=== PATIENT | female | born 1940 | race Caucasian/White ===

== ENCOUNTER 2017-12-04 07:43 | Emergency (ER) | payer MEDICARE, OTHER, SELFPAY ==
[2017-12-04 08:05] VITALS: BP 129/65; PULSE 90; RESP 14; TEMP 36.7; O2SAT 95
--- NOTE | 2017-12-04 08:12 | W.ED.GENAD ---
Discharge Plan Disposition Patient Disposition: HOME Condition: Stable Discharge Details Chief Complaint: EyeProblem Clinical Impression: Bacterial conjunctivitis Primary Care Provider: Fern Carlson ED Provider: Deedee Mcdonald Home Meds and New Rx's Prescriptions: Continue levothyroxine 100 MCG tablet 100 mcg PO DAILY RF: 0 aspirin [Aspirin Low-Strength] 81 MG tablet,chewable 81 mg PO DAILY RF: 0 montelukast [Singulair] 10 MG tablet 10 mg PO DAILY RF: 0 zolpidem [Ambien] 5 MG tablet 5 mg PO DAILY RF: 0 melatonin-pyridoxine (vit B6) 1 EACH tablet 1 ea PO HS RF: 0 rosuvastatin [Crestor] 10 MG tablet 10 mg PO DAILY RF: 0 fluticasone-salmeterol [Advair HFA] 8 GM HFA aerosol inhaler 2 puff Inhalation BID RF: 0 VALERAN ROOT PO HS RF: 0 Discharge Instructions Instructions: Conjunctivitis (ED) Additional Instructions: Apply 2 drops of the sulfacetamide ophthalmic solution into both eyes every 6 hours for the next 5 days. Follow-up with your primary care doctor in 1 week for reevaluation. Return to the emergency department with any worsening or new concerning symptoms. Discharge Data Discharge Physician: Deedee Mcdonadl Medical Decision Making 77-year-old female presents with bilateral eye injection, irritation, yellow discharge since last night. Denies blurry vision. Does not wear contacts. No URI symptoms. Patient has no history of allergies. Appears consistent with bacterial conjunctivitis. Sulfacetamide solution 2 drops applied to both eyes and patient sent home with bottle. She is instructed on the importance of handwashing and avoid excessive rubbing of eyes. She is instructed to follow-up with primary care doctor in 1 week for reevaluation and return here with any concern HPI General Mode of arrival: ambulatory. Date/Time Provider Initiated Documentation: 12/04/17 08:03. Limitations to Documentation: no limitations. Information obtained by: patient. HPI Narrative: Pt is a 77yo F who presents with b/l eye irritation and yellow discharge since last night. States she thinks she got it from a cart at a store recently. She denies blurry vision. She does not wear contacts. Past medical history: Asthma, high cholesterol Past surgical history: Bilateral hip replacement, leg stents, B/L Dupuytren's contracture repair, Tonsillectomy, Colon surgery for obstruction (no resection) Social history: Occasional etoh, Denies tobacco or drugs Meds: See list Allergies: None PCP: Fern Carlson Related Data Home Medications Medication Instructions Recorded Confirmed Valeran Root PO HS 06/20/14 aspirin [Aspirin Low-Strength] 81 mg PO DAILY tab-cap 06/20/14 12/04/17 fluticasone-salmeterol [Advair HFA] 2 puff INHALATION BID inhaler 06/20/14 12/04/17 levothyroxine 100 mcg PO DAILY tab-cap 06/20/14 12/04/17 melatonin-pyridoxine (vit B6) 1 ea PO HS 06/20/14 12/04/17 montelukast [Singulair] 10 mg PO DAILY tab-cap 06/20/14 12/04/17 rosuvastatin [Crestor] 10 mg PO DAILY tab-cap 06/20/14 12/04/17 zolpidem [Ambien] 5 mg PO DAILY tab-cap 06/20/14 12/04/17 Allergies Allergy/AdvReac Type Severity Reaction Status Date / Time No Known Allergies Allergy Unverified 12/04/17 08:11 General Stated Complaint: EyeProblem MOE: 5 Review of Systems Review of Systems All systems reviewed & are unremarkable except as noted in HPI and below PFSH Social History Smoking/Tobacco Use Status: Never Exam Const General: cooperative and healthy appearing Orientation: alert and awake HENMT Head: normal to inspection Ears: hearing grossly normal bilaterally and external ears normal General nose exam: external nose normal Face and sinus: normal facial exam Mouth: oral mucosae normal Throat: posterior oropharynx normal Eyes Periorbital: periorbital findings normal Eyelids: eyelids normal Pupils: PERRL EOM: EOM intact bilaterally Other: Bilateral yellow crusting discharge, injection, tearing Neck Neck: normal visual inspection Resp Effort & Inspection: normal respiratory effort and able to speak in complete sentences Cardio Rate: regular rate Skin General skin exam: no rashes or lesions noted Neuro General: alert and awake Cognition: normal cognition Speech: speech normal Gait: normal gait Extrem General: normal to inspection and full ROM Psych Appearance: grossly normal Mental Status: mental status grossly normal Speech and Movement: speech and movement normal Affect: normal affect Thought Process: normal Course Vital Signs Temperature 98.1 F 12/04/17 08:05 Pulse 90 12/04/17 08:05 Respiratory Rate 14 12/04/17 08:05 Blood Pressure 129/65 12/04/17 08:05 Pulse Oximetry 95 12/04/17 08:05 Temperature 98.1 F 12/04/17 08:05 Temperature Source Temporal Artery Scan 12/04/17 08:05 Pulse 90 12/04/17 08:05 Respiratory Rate 14 12/04/17 08:05 Respiratory Effort Non-Labored 12/04/17 08:07 Blood Pressure 129/65 12/04/17 08:05 Blood Pressure Position Sitting 12/04/17 08:05 Pulse Oximetry 95 12/04/17 08:05 Oxygen Delivery Method Room Air 12/04/17 08:05 Oxygen Flow Rate 0 12/04/17 08:05
--- NOTE | 2017-12-04 08:17 | ED.GENADUL_ITS ---
Discharge Plan Disposition Patient Disposition: HOME Condition: Stable Discharge Details Chief Complaint: EyeProblem Clinical Impression: Bacterial conjunctivitis Primary Care Provider: Fern Carlson ED Provider: Deedee Mcdonald Home Meds and New Rx's Prescriptions: Continue levothyroxine 100 MCG tablet 100 mcg PO DAILY RF: 0 aspirin [Aspirin Low-Strength] 81 MG tablet,chewable 81 mg PO DAILY RF: 0 montelukast [Singulair] 10 MG tablet 10 mg PO DAILY RF: 0 zolpidem [Ambien] 5 MG tablet 5 mg PO DAILY RF: 0 melatonin-pyridoxine (vit B6) 1 EACH tablet 1 ea PO HS RF: 0 rosuvastatin [Crestor] 10 MG tablet 10 mg PO DAILY RF: 0 fluticasone-salmeterol [Advair HFA] 8 GM HFA aerosol inhaler 2 puff Inhalation BID RF: 0 VALERAN ROOT PO HS RF: 0 Discharge Instructions Instructions: Conjunctivitis (ED) Additional Instructions: Apply 2 drops of the sulfacetamide ophthalmic solution into both eyes every 6 hours for the next 5 days. Follow-up with your primary care doctor in 1 week for reevaluation. Return to the emergency department with any worsening or new concerning symptoms. Discharge Data Discharge Physician: Deedee Mcdonald Medical Decision Making 77-year-old female presents with bilateral eye injection, irritation, yellow discharge since last night. Denies blurry vision. Does not wear contacts. No URI symptoms. Patient has no history of allergies. Appears consistent with bacterial conjunctivitis. Sulfacetamide solution 2 drops applied to both eyes and patient sent home with bottle. She is instructed on the importance of handwashing and avoid excessive rubbing of eyes. She is instructed to follow-up with primary care doctor in 1 week for reevaluation and return here with any concern HPI General Mode of arrival: ambulatory . Date/Time Provider Initiated Documentation: 12/04/17 08:03 . Limitations to Documentation: no limitations . Information obtained by: patient . HPI Narrative: Pt is a 77yo F who presents with b/l eye irritation and yellow discharge since last night. States she thinks she got it from a cart at a store recently. She denies blurry vision. She does not wear contacts. Past medical history: Asthma, high cholesterol Past surgical history: Bilateral hip replacement, leg stents, B/L Dupuytren's contracture repair, Tonsillectomy, Colon surgery for obstruction (no resection) Social history: Occasional etoh, Denies tobacco or drugs Meds: See list Allergies: None PCP: Fern Carlson Related Data Home Medications Medication Instructions Recorded Confirmed Valeran Root PO HS 06/20/14 aspirin [Aspirin Low-Strength] 81 mg PO DAILY tab-cap 06/20/14 12/04/17 fluticasone-salmeterol [Advair HFA] 2 puff INHALATION BID inhaler 06/20/14 levothyroxine 100 mcg PO DAILY tab-cap 06/20/14 12/04/17 melatonin-pyridoxine (vit B6) 1 ea PO HS 06/20/14 12/04/17 montelukast [Singulair] 10 mg PO DAILY tab-cap 06/20/14 12/04/17 rosuvastatin [Crestor] 10 mg PO DAILY tab-cap 06/20/14 12/04/17 zolpidem [Ambien] 5 mg PO DAILY tab-cap 06/20/14 12/04/17 Allergies Allergy/AdvReac Type Severity Reaction Status Date / Time No Known Allergies Allergy Unverified 12/04/17 08:11 General Stated Complaint: EyeProblem MOE: 5 Review of Systems Review of Systems All systems reviewed & are unremarkable except as noted in HPI and below PFSH Social History Smoking/Tobacco Use Status: Never Exam Const General: cooperative and healthy appearing Orientation: alert and awake HENMT Head: normal to inspection Ears: hearing grossly normal bilaterally and external ears normal General nose exam: external nose normal Face and sinus: normal facial exam Mouth: oral mucosae normal Throat: posterior oropharynx normal Eyes Periorbital: periorbital findings normal Eyelids: eyelids normal Pupils: PERRL EOM: EOM intact bilaterally Other: Bilateral yellow crusting discharge, injection, tearing Neck Neck: normal visual inspection Resp Effort & Inspection: normal respiratory effort and able to speak in complete sentences Cardio Rate: regular rate Skin General skin exam: no rashes or lesions noted Neuro General: alert and awake Cognition: normal cognition Speech: speech normal Gait: normal gait Extrem General: normal to inspection and full ROM Psych Appearance: grossly normal Mental Status: mental status grossly normal Speech and Movement: speech and movement normal Affect: normal affect Thought Process: normal Course Vital Signs Temperature 98.1 F 12/04/17 08:05 Pulse 90 12/04/17 08:05 Respiratory Rate 14 12/04/17 08:05 Blood Pressure 129/65 12/04/17 08:05 Pulse Oximetry 95 12/04/17 08:05 Temperature 98.1 F 12/04/17 08:05 Temperature Source Temporal Artery Scan 12/04/17 08:05 Pulse 90 12/04/17 08:05 Respiratory Rate 14 12/04/17 08:05 Respiratory Effort Non-Labored 12/04/17 08:07 Blood Pressure 129/65 12/04/17 08:05 Blood Pressure Position Sitting 12/04/17 08:05 Pulse Oximetry 95 12/04/17 08:05 Oxygen Delivery Method Room Air 12/04/17 08:05 Oxygen Flow Rate 0 12/04/17 08:05
--- NOTE | 2017-12-06 15:15 | NUR.NOTE ---
Nursing Note: Patient called stating that the medicine that we dispensed to her at her ED visit was chewed up by the dog. Per Mohamud Ricardo NP I called in a prescription to [facility] for sulfacetamide ophthalmic solution for both eyes every 6 hrs for 5 days. Linda Robles.
== END 2017-12-04 08:36 | disposition home or self-care (01) ==
LOC: ER 08:40
PROVIDERS: Emergency Provider Physician Assistant; PCP Nurse Practitioner Family
DX: H10.023 Other mucopurulent conjunctivitis, bilateral (principal)
CPT/HCPCS: 99283

== ENCOUNTER 2019-07-04 09:05 | Emergency (ER) | payer MEDICARE, OTHER, SELFPAY ==
[2019-07-04] VITALS (38 sets, daily range): BP systolic 71–143; BP diastolic 46–118; PULSE 60–90; RESP 11–21; TEMP 36.8; O2SAT 96–100
--- NOTE | 2019-07-04 09:30 | DI.RAD_ITS ---
EXAM: XR CHEST 2V PA LATERAL CLINICAL HISTORY: L sided chest pain began yesterday TECHNIQUE: COMPARISON: CR CHEST 2 VIEWS PA,LAT from 12/09/2015 FINDINGS: There are senile pulmonary changes with mild hyperinflation and scarring. No focal consolidation. N o pleural effusion. Cardiac size is within normal limits. IMPRESSION: No acute abnormality seen.
[2019-07-04 09:38] LABS: Abs Immature Grans 0.01 k/cumm (0.0-0.09); Absolute Basophil Count 0.04 k/cumm (0.0-0.2); Absolute Eosinophil Count 0.23 k/cumm (0.0-0.7); Absolute Lymphocyte Count 0.82 k/cumm (1.2-3.4); Absolute Monocyte Count 0.61 k/cumm (0.11-0.7); Absolute Neutrophil Count 5.22 k/cumm (1.2-6.7); Basophils % 0.6; Eosinophils % 3.3; HCT 35.6 % (36.0-46.0); HGB 11.8 g/dL (12.0-15.5); Immature Grans % 0.1 %; Lymphocytes % 11.8; Mean Corp. HGB Concentration 33.1 g/dL (32.0-36.0); Mean Corpuscular Hemoglobin 30.2 pg (27.0-33.0); Mean Platelet Volume 10.7 fL (8.0-11.0); Monocytes % 8.8; Neutrophils % 75.4; Platelet Count 166 x1000/uL (130-400); RBC 3.91 m/cumm (4.00-5.20); White Blood Cell Count 6.93 k/cumm (4.4-10.8)
[2019-07-04] MEDS: Aspirin 81 MG CHEW 243 MG CH (09:40)
[2019-07-04] MEDS: Normal Saline 1,000 ML 125 ML IV (09:42)
[2019-07-04 09:53] LABS: ALT 27 U/L (14-59); AST 27 U/L (15-37); Albumin 3.4 g/dL (3.4-5.0); Alkaline Phosphatase 67 U/L (46-116); Anion Gap 8.1 mmol/L (3-11); BUN 17 mg/dL (7-18); Bilirubin, Total 0.3 mg/dL (0.2-1.0); CO2 26.9 mmol/L (21.0-32.0); CREATININE 0.78 mg/dL (0.55-1.02); Calcium 8.5 mg/dL (8.5-10.1); Chloride 102 mmol/L (98-107); Glucose 165 mg/dL (74-106); Sodium 137 mmol/L (136-145); Total Protein 6.6 g/dL (6.4-8.2)
[2019-07-04 09:55] LABS: Troponin I < 0.05 ng/Ml (<0.06)
[2019-07-04 09:56] LABS: Magnesium 2.1 mg/dL (1.8-2.4); PTT Activated 24.3 sec (21.0-31.4); Prothrombin Time 10.3 sec (9.3-11.0)
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
--- NOTE | 2019-07-04 11:24 | NUR.NOTE ---
pt ambulates up to restroom without difficulty. pt denies pain at this time before or after walking to the restroom. pt is eating an orange at this time.Nursing Note:
--- NOTE | 2019-07-04 12:23 | NUR.NOTE ---
pt states she has Chest pain 1 and 1/2 over 10. elle WATTS made aware. repeat EKG completed.Nursing Note:
--- NOTE | 2019-07-04 12:24 | NUR.NOTE ---
after EKG completed pt states chest pain now 1/2 over 10. blood had been drawn and sent to lab.Nursing Note:
[2019-07-04 12:48] LABS: Troponin I < 0.05 ng/Ml (<0.06)
== END 2019-07-04 13:25 | disposition home or self-care (01) ==
PROVIDERS: Emergency Provider Physician Assistant; PCP Nurse Practitioner Family
DX: R07.9 Chest pain, unspecified (principal); J44.9 Chronic obstructive pulmonary disease, unspecified
CPT/HCPCS: 36415; 80053; 93005; 96360; 96361; 99285; 71046; 83735; 84484; 85025; 85610; 85730; 93010; 99284

== ENCOUNTER 2019-07-10 00:29 | Outpatient (CLI) | payer MEDICARE, OTHER, SELFPAY ==
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
== END 2019-07-10 00:49 ==
PROVIDERS: PCP Nurse Practitioner Family; Visit Provider Family Medicine
DX: R07.9 Chest pain, unspecified (principal); E03.9 Hypothyroidism, unspecified; E78.5 Hyperlipidemia, unspecified
CPT/HCPCS: 93016; 93018; 93017

== ENCOUNTER 2019-07-14 01:44 | Outpatient (CLI) | payer MEDICARE, OTHER, SELFPAY ==
--- NOTE | 2019-07-14 | DI.MAMMO_ITS ---
EXAM: MG MAMMO SCREENING 60 MIN DUR CLINICAL HISTORY: SCREENING, Z12.39 TECHNIQUE: Mammograms were interpreted according to the usual protocol including computer analysis w [employer] CAD system, tomosynthesis and C-view imaging. COMPARISON: FINDINGS: The breasts are heterogeneously dense. No dominant mass or clumped microcalcification is identified in either breast. The current examination is compared with previous examinations including December 2017 and there has been no gross interval change in appearance comparison the previous studies. IMPRESSION: No specific evidence of malignancy at this time. Routine screening examinations are suggested at yea rly intervals in this age group according to the ACS ACR guidelines. Category: BI-RADS Cat 1 - Negative Breast Density - Category C - Heterogeneously dense:
== END 2019-07-14 02:04 ==
PROVIDERS: PCP Nurse Practitioner Family; Visit Provider Nurse Practitioner Family
DX: Z12.31 Encounter for screening mammogram for malignant neoplasm of breast (principal)
CPT/HCPCS: 77063; 77067

== ENCOUNTER 2019-09-08 15:39 | Outpatient (CLI) | payer MEDICARE, OTHER, SELFPAY | END 2019-09-08 15:59 | PROVIDERS: PCP Nurse Practitioner Family; Visit Provider Nurse Practitioner Family | DX: R00.0 Tachycardia, unspecified (principal) | CPT/HCPCS: 93225 ==

== ENCOUNTER 2019-09-11 11:14 | Outpatient (CLI) | payer MEDICARE, OTHER, SELFPAY ==
--- NOTE | 2019-09-11 12:32 | W.HOLTRPT ---
Date of service: 09/11/19 Time of Service: 12:32 Holter Monitor Report Referring Provider:: Unknown Indications:: Tachycardia Holter Monitor Note: This is a 24-hour Holter monitor ordered for indication of tachycardia. ?The patient was in normal sinus rhythm for the majority recording with an average heart rate of 84 bpm. ?The patient had 5 episodes of supraventricular tachycardia with the longest lasting 4 beats. ?There were no episodes ventricular tachycardia and no single premature ventricular contractions. ?There were no pauses greater than 3 seconds no evidence of high degree heart block and no episodes of atrial fibrillation.
== END 2019-09-11 11:34 ==
PROVIDERS: PCP Nurse Practitioner Family; Visit Provider Nurse Practitioner Family
DX: R00.0 Tachycardia, unspecified (principal); I47.1 Supraventricular tachycardia
CPT/HCPCS: 93227; 93226

== ENCOUNTER 2019-09-12 16:18 | Outpatient (CLI) | payer MEDICARE, OTHER, SELFPAY ==
--- NOTE | 2019-09-12 | DI.RAD_ITS ---
EXAM: XR CHEST 2V PA LATERAL CLINICAL HISTORY: SHORTNESS OF BREATH, R06.02 TECHNIQUE: 2D digital imaging was performed. COMPARISON: CR XR CHEST 2V PA LATERAL from 07/04/2019 FINDINGS: MEDIASTINUM: Normal. HEART: Normal. PULMONARY VASCULATURE: Normal. LUNGS: Clear. PLEURAL SPACE: No pleural effusion or pneumothorax. BONE:Age-appropriate degenerative changes in the spine. Degenerative changes in the shoulders bilate rally. Postsurgical changes in the right shoulder. OTHER FINDINGS:Normal. IMPRESSION: No acute pulmonary findings. DATA REPOSITORY: RADIATION DOSE DELIVERED:
--- NOTE | 2019-09-12 16:24 | DI.VRAD_ITS ---
PROCEDURE INFORMATION: Exam: XR Chest, 2 Views Exam date and time: 09/12/2019 4:03 PM Age: 79 years old Clinical indication: Other: Shortness of breath TECHNIQUE: Imaging protocol: XR of the chest Views: 2 views. COMPARISON: CR XR CHEST 2V PA LATERAL 07/04/2019 9:54 AM FINDINGS: Lungs: Clear lungs. Pleural space: No pneumothorax. No sizeable effusion. Heart/Mediastinum: Cardiomediastinal silhouette is within normal limits. Bones/joints: No acute displaced fracture or dislocation. IMPRESSION: No acute cardiopulmonary process. Dictated and Authenticated by: Ricardo Hinson MD. Ordering:GLADYS Freed MD
[2019-09-12 16:42] LABS: HCT 28.8 % (36.0-46.0); HGB 8.9 g/dL (12.0-15.5); Mean Corp. HGB Concentration 30.9 g/dL (32.0-36.0); Mean Corpuscular Hemoglobin 25.1 pg (27.0-33.0); Mean Corpuscular Volume 81.4 fL (80-95); Mean Platelet Volume 11.3 fL (8.0-11.0); Platelet Count 184 x1000/uL (130-400); RBC 3.54 m/cumm (4.00-5.20); RBC Distribution Width 15.8 % (11.7-14.6); White Blood Cell Count 6.84 k/cumm (4.4-10.8)
[2019-09-12 17:07] LABS: ALT 25 U/L (14-59); AST 26 U/L (15-37); Albumin 3.4 g/dL (3.4-5.0); Alkaline Phosphatase 61 U/L (46-116); Anion Gap 9.7 mmol/L (3-11); BUN 18 mg/dL (7-18); Bilirubin, Total 0.2 mg/dL (0.2-1.0); CO2 25.3 mmol/L (21.0-32.0); CREATININE 0.76 mg/dL (0.55-1.02); Calcium 8.3 mg/dL (8.5-10.1); Chloride 102 mmol/L (98-107); Glucose 95 mg/dL (74-106); NT-proBNP 179 pg/mL (<300); Potassium 3.9 mmol/L (3.5-5.1); Sodium 137 mmol/L (136-145); Total Protein 6.5 g/dL (6.4-8.2)
[2019-09-13 08:49] LABS: Reticulocyte 1.9 % (0.5-2.4)
== END 2019-09-12 16:38 ==
PROVIDERS: PCP Nurse Practitioner Family; Visit Provider Nurse Practitioner Family
DX: R06.02 Shortness of breath (principal)
CPT/HCPCS: 36415; 80053; 85027; 71046; 83880; 85045

== ENCOUNTER 2019-09-12 20:20 | Outpatient (REF) | payer MEDICARE, OTHER, SELFPAY ==
[2019-09-17 15:36] LABS: SARS-CoV-2 RNA Undetected (Undetected); SARS-CoV-2 Specimen Source Nasopharynx
== END 2019-09-12 20:40 ==
LOC: NCHCN 20:20
PROVIDERS: PCP Nurse Practitioner Family; Visit Provider Nurse Practitioner Family
DX: R06.02 Shortness of breath (principal); Z03.818 Encounter for observation for suspected exposure to other biological agents ruled out
CPT/HCPCS: U0003

== ENCOUNTER 2019-09-15 10:23 | Outpatient (CLI) | payer MEDICARE, OTHER, SELFPAY ==
[2019-09-15 14:14] LABS: Calcium 8.7 mg/dL (8.5-10.1); Ferritin 7 ng/mL (8-252)
[2019-09-15 14:47] LABS: Iron 15 ug/dL (50-170); Total Iron Binding Capacity 335 ug/dL (250-450); Transferrin Sat 4 % (15-50)
== END 2019-09-15 10:43 ==
PROVIDERS: PCP Nurse Practitioner Family; Visit Provider Nurse Practitioner Family
DX: D64.9 Anemia, unspecified (principal); E83.51 Hypocalcemia; D64.89 Other specified anemias; Z01.818 Encounter for other preprocedural examination
CPT/HCPCS: 36415; 99213; 82310; 82728; 83540; 83550

== ENCOUNTER 2019-09-29 08:04 | Outpatient (CLI) | payer MEDICARE, OTHER, SELFPAY ==
[2019-09-30 18:08] LABS: COVID-19 RT-PCR Result NEGATIVE (Negative)
== END 2019-09-29 08:24 ==
PROVIDERS: Physical Therapy Assistant; PCP Nurse Practitioner Family; Visit Provider Surgery
DX: Z01.818 Encounter for other preprocedural examination (principal)
CPT/HCPCS: U0003

== ENCOUNTER 2019-10-02 09:09 | Day surgery (SDC) | payer MEDICARE, OTHER, SELFPAY ==
--- NOTE | 2019-10-02 06:48 | ENDO_ITS ---
Date of service: 10/02/19 Time of Service: 12:55 Endoscopy Report DATE OF PROCEDURE: 10/02/19 PRE-OP DIAGNOSIS: Anemia POST-OP DIAGNOSIS: other (Gastritis with active bleeding, gastric polyps, esophagitis, colon polyps) PROCEDURE: 1. EGD with biopsies and cautery 2. Colonoscopy with polypectomy SURGEON: Natalie Zapata ANESTHESIA: other (General/ ASA 2/Chester Otto, DIETARY COOK ) ESTIMATED BLOOD LOSS: 5 PATHOLOGY: other (Gastric bx, GE junction bx, colon polyps x12) COMPLICATIONS: None DISPOSITION: same day INDICATIONS: Patient is symptomatic of her anemia. (+) Hemoccult testing x 2 in the office today. Will proceed with EGD and Colonoscopy for further investigation for a source of bleeding. The patient is here for Colonoscopy pre-op. Her last screening was in 2006 and was unremarkable. She has no family history of colon cancer. She has not had any bowel habit changes. -Discussed colonoscopy bowel prep as well as the procedure. Discussed possible complications of the procedure to include bleeding, pain, perforation, missed small lesion/polyp, sore throat, aspiration and adverse reaction to the medications. Questions were answered to patient?s satisfaction. No guarantees were implied or given. -Discussed Upper endoscopy procedure and the need to be NPO after midnight the night prior. Discussed possible complications of the procedure to include bleeding, pain, perforation, missed small lesion/polyp/ulcers, sore throat, aspiration and adverse reaction to the medications or sedation. Questions were answered to patient?s satisfaction. No guarantees were implied or given. PREP: Miralax/Dulcolax PROCEDURE START TIME: 11:20 PROCEDURE END TIME: 12:26 COLONOSCOPY RETRACTION TIME: 31 minutes FINDINGS: Upper- acute bleeding in the body of stomach. ?small ulcer. This was cauterized. There was inflammation in the stomach and esophagus. Colonoscopy- 12 sessile polyps PROCEDURE DESCRIPTION: After informed consent was obtained the patient was take to the procedure room and placed in a supine position. Monitors were applied and a time out was done. The patients name, date of , procedure type, allergies to medications and metal in their body was reviewed. A bite block was placed and the patient was sedated. Once sedated and comfortable the gastroscope was advanced through the oropharynx which was grossly normal into the esophagus. The proximal and mid- esophagus were normal. In the distal esophagus there was inflammation noted. The scope was advanced into the stomach and through the pylorus into the 3rd portion of the duodenum. The duodenum was noted to be normal. The scope was retracted back into the stomach. There was moderate inflammation and there was a clot noted. The clot was washed and there was active bleeding noted. A biopsy was done of the area and it was then cauterized. Bleeding was stopped. Biopsies were done of the antrum to rule out H. pylori. There were also numerous polyps and they were biopsied with hot forceps. The scope was retro-flexed. The cardia and fundus were noted to be normal. There was no hiatal hernia noted. The scope was retracted back into the esophagus and biopsies were done of the GE junction to rule out Duvall's. The Z line was regular. The GE junction was at 35 cm. While the patient was still sedated they were placed in a left decubitous position. A rectal exam was done. External exam was normal. Internal exam revealed a normal sphincter tone and no palpable masses. The scope was then introduced and retro-flexed. No internal hemorrhoids were identified. The scope was then advanced to the cecum without difficulty. The ileocecal valve and appendiceal orifice were identified. The prep was good. The scope was then slowly retracted over 31 minutes back into the rectum. There were 12 polyps identified. 5 polyps in the Transverse colon, 1 polyp in the ascending colon, 1 polyp in the sigmoid colon, and 5 polyps in the rectum. Ther were removed with a combination of hot snare and cold forceps. The scope was removed and the patient was woken up and taken back to Same day surgery in stable condition. The patient tolerated the procedure well and there were no immediate complications. Follow up: in 2 weeks in the office
--- NOTE | 2019-10-02 06:49 | W.PM.DSUDISC ---
Discharge Plan Disposition Patient Disposition: HOME Condition: Good Discharge Details Reason For Visit: Anemia Attending Provider: Natalie Zapaat Primary Care Provider: Fern Carlson Home Meds and New Rx's Prescriptions: New omeprazole 40 mg capsule,delayed release(DR/EC) 40 mg PO DAILY Qty: 30 RF: 3 sucralfate [Carafate] 1 gram tablet 1 gm PO Q6H Qty: 56 RF: 0 Continued omega-3 fatty acids [Fish Oil Concentrate] 1,000 mg capsule 1,000 mg PO DAILY RF: 0 ascorbate calcium (vitamin C) 500 mg tablet 500 mg PO DAILY RF: 0 multivitamin [Daily Multi-Vitamin] Tablet 1 tab PO DAILY RF: 0 aspirin [Aspirin Low-Strength] 81 MG tablet,chewable 81 mg PO DAILY RF: 0 rosuvastatin [Crestor] 10 MG tablet 10 mg PO DAILY RF: 0 Advair HFA 8 GM HFA aerosol inhaler 2 puff Inhalation BID RF: 0 levothyroxine 100 mcg tablet 75 mcg PO DAILY RF: 0 melatonin-pyridoxine (vit B6) 3-2 mg tablet 6 tab PO HS RF: 0 trazodone 50 mg tablet 50 mg PO .QHS RF: 0 ferrous sulfate 325 mg (65 mg iron) Tablet 325 mg PO DAILY RF: 0 Discontinued bisacodyl [Dulcolax (bisacodyl)] 5 mg tablet,delayed release (DR/EC) 5 mg PO ONCE Qty: 4 RF: 0 polyethylene glycol 3350 17 gram/dose powder 17 g PO ONCE Qty: 238 RF: 0 Discharge Instructions Instructions: Diet for Stomach Ulcers and Gastritis (ED), Gastric Polyps (DC), Gastritis (DC), Esophagitis (DC), Colorectal Polyps (DC) Additional Instructions: Findings: 1. Upper endoscopy- Inflammation of stomach, and esophagus, bleeding in the stomach 2. Colonoscopy- 12 polyps Follow up: 2 weeks Please call if you develop: fevers >101.5 Nausea or Vomiting Abdominal pain that is not transient DAY SURGERY UNIT POST ENDOSCOPY INSTRUCTIONS 1. Because there will be medication in your system for the next 24 hours, you may feel a little sleepy. Your coordination will be affected. Therefore: a. Do not drive or operate dangerous equipment for 24 hours. b. Do not drink alcohol beverages for 24 hours (not even beer). c. Plan to go home and rest for the day. 2. Generally there are no restrictions on your activity after a day or so has gone by, but you may feel a bit fatigued for a few days. 3 After you arrive home you may have a light meal and return to a normal diet as you can tolerate it without feeling sick to your stomach. 4. After surgery, you may feel pain or discomfort. This should be only transient, but if it persists please contact your doctor. 5. If there are any questions regarding the findings of your procedure, please feel free to contact your doctor. 6. If you are unable to contact your doctor with a problem, contact the hospital at [phone]. 7. Continue all your regular medications unless directed otherwise. I understand the above instructions and have no questions. Signature of Patient or Responsible Adult Escort Date/Time Name of Responsible Adult Escort Signature of Nurse Date/Time Referrals: Natalie Zapata MD [ [facility] STAFF PHYSICIAN] - Activity:: Activity as Tolerated Diet:: low acid Discharge Orders Discharge Orders: Discharge Order (Routine); Ordered 10/02/19 Ordered By: Natalie Zapata
[2019-10-02 09:23] VITALS: BP 116/59; PULSE 75; RESP 16; TEMP 36.2; O2SAT 99
[2019-10-02] MEDS: Lactated Ringers 1,000 ML 80 ML IV (09:55)
--- NOTE | 2019-10-02 11:25 | STOM_PTH ---
PATIENT: Elaine Eisenberg LOC: VIRY U#:[id number] AGE/SX: 79/F ROOM: RE10/02/[address]: Natalie Zapata MD : 1940 BED: DIS: 10/02/2019 SPEC #: [id number] RECD: 10/02/19 15:12 STATUS: JOSE FRANCISCO RE #: [id number] PAULINA: 10/02/19 11:[address]: Natalie Zapata DEPT: Surgical Specimen RECD BY: Marleni Roche ENTERED: 10/02/19 15:14 SP TYPE: STOMACH OTHR DR: Fern Carlson Tissues: 1 - STOMACH BIOPSY 2 - STOMACH BIOPSY 3 - ESOPHAGUS BIOPSY 4 - BIOPSY BOWEL 5 - BIOPSY BOWEL 6 - BIOPSY BOWEL 7 - BIOPSY BOWEL Procedures: GROSS AND MICRO LEVEL 4 IMMUNOPEROXIDASE STAIN Comments: [id number]
[2019-10-02 13:12] VITALS: BP 133/64; PULSE 66; RESP 16; TEMP 36.4; O2SAT 94
== END 2019-10-02 14:14 | disposition home or self-care (01) ==
LOC: SUR 09:09
PROVIDERS: PCP Nurse Practitioner Family; Visit Provider Surgery
PROC: (CPT 45385; principal; 2019-10-02 10:30)
DX: D64.9 Anemia, unspecified (principal); R19.5 Other fecal abnormalities; K29.01 Acute gastritis with bleeding; K29.61 Other gastritis with bleeding; K31.7 Polyp of stomach and duodenum; K22.70 Barrett's esophagus without dysplasia; K21.0 Gastro-esophageal reflux disease with esophagitis; D12.3 Benign neoplasm of transverse colon; K62.1 Rectal polyp
CPT/HCPCS: 45385; 45380; 43239; 88305; 88361; J0171; J2001

== ENCOUNTER 2019-10-11 14:20 | Outpatient (CLI) | payer MEDICARE, OTHER, SELFPAY ==
--- NOTE | 2019-10-11 | DI.RAD_ITS ---
EXAM: XR FOOT LT COMPLETE CLINICAL HISTORY: HEEL PAIN LT, M79.672. TECHNIQUE: 2D digital imaging was performed. COMPARISON: No exams were available for comparison FINDINGS: BONES: No acute fracture is present. No bony destructive lesion is seen. The bones appear osteopeni c. JOINTS: No dislocation present. There are mild degenerative changes. SOFT TISSUE: Mild vascular calcifications. IMPRESSION: Mild degenerative changes and tiny heel spur. DATA REPOSITORY: RADIATION DOSE DELIVERED:
== END 2019-10-11 14:40 ==
PROVIDERS: PCP Nurse Practitioner Family; Visit Provider Nurse Practitioner Family
DX: M19.072 Primary osteoarthritis, left ankle and foot (principal); M77.32 Calcaneal spur, left foot; M79.672 Pain in left foot
CPT/HCPCS: 73630

== ENCOUNTER → 2019-10-17 09:19 | Outpatient (BNVA) | payer MEDICARE, OTHER, SELFPAY | PROVIDERS: PCP Nurse Practitioner Family; Referring Provider Nurse Practitioner Family; Visit Provider Surgery | DX: K29.60 Other gastritis without bleeding (principal); D12.3 Benign neoplasm of transverse colon | CPT/HCPCS: 99212 ==

== ENCOUNTER 2020-01-12 02:04 | Outpatient (CLI) | payer MEDICARE, OTHER, SELFPAY ==
[2020-01-12 11:14] LABS: HCT 45.9 % (36.0-46.0); MCH 30.1 pg (27.0-33.0); MCHC 32.7 % (32.0-36.0); MCV 92.2 fL (80-95); MPV 10.5 fL (8.0-11.0); Platelet Count 177 10^3/uL (130-400); RBC 4.98 10^6/uL (3.93-5.22); RDW 16.8 % (11.7-14.6); RDW-SD 56.8 fL; WBC 8.44 10^3/uL (4.4-10.8)
[2020-01-12 11:46] LABS: Iron 67 ug/dL (50-170); Total Iron Binding Capacity 360 ug/dL (250-450); Transferrin Sat 19 % (15-50)
[2020-01-12 12:06] LABS: Anion Gap 9.8 mmol/L (3-11); BUN 16 mg/dL (7-18); CO2 29.2 mmol/L (21.0-32.0); CREATININE 0.67 mg/dL (0.55-1.02); Calcium 8.7 mg/dL (8.5-10.1); Calculated LDL 124 mg/dL (<100); Chloride 102 mmol/L (98-107); Cholesterol 214 mg/dL (<200); Ferritin 32 ng/mL (8-252); Glucose 100 mg/dL (74-106); HDL Cholesterol 79 mg/dL (40-60); Sodium 141 mmol/L (136-145); TSH (W/Ref FT4) 0.26 uIU/mL (0.36-3.74); Triglyceride 59 mg/dL (<150)
[2020-01-12 12:27] LABS: FREE T4 1.21 ng/dL (0.76-1.46)
== END 2020-01-12 02:24 ==
PROVIDERS: PCP Nurse Practitioner Family; Visit Provider Nurse Practitioner Family
DX: D50.9 Iron deficiency anemia, unspecified (principal); E03.9 Hypothyroidism, unspecified; E78.5 Hyperlipidemia, unspecified; M79.672 Pain in left foot; M25.552 Pain in left hip; L82.1 Other seborrheic keratosis; G47.9 Sleep disorder, unspecified
CPT/HCPCS: 36415; 80048; 80061; 85027; 82728; 83540; 83550; 84439; 84443

== ENCOUNTER 2020-08-08 02:57 | Outpatient (CLI) | payer MEDICARE, OTHER, SELFPAY ==
[2020-08-08 12:19] LABS: HCT 41.1 % (36.0-46.0); HGB 13.6 g/dL (11.2-15.7); MCH 32.6 pg (27.0-33.0); MCHC 33.1 % (32.0-36.0); MCV 98.6 fL (80-95); MPV 10.4 fL (8.0-11.0); Platelet Count 152 10^3/uL (130-400); RBC 4.17 10^6/uL (3.93-5.22); RDW-SD 46.7 fL; WBC 8.55 10^3/uL (4.4-10.8)
[2020-08-08 14:02] LABS: Iron 85 ug/dL (50-170); Total Iron Binding Capacity 276 ug/dL (250-450); Transferrin Sat 31 % (15-50)
[2020-08-08 14:10] LABS: ALT 37 U/L (14-59); AST 31 U/L (15-37); Albumin 3.6 g/dL (3.4-5.0); Alkaline Phosphatase 86 U/L (46-116); Anion Gap 9.6 mmol/L (3-11); BUN 20 mg/dL (7-18); Bilirubin, Total 0.5 mg/dL (0.2-1.0); CO2 26.4 mmol/L (21.0-32.0); CREATININE 0.8 mg/dL (0.55-1.02); Calcium 8.4 mg/dL (8.5-10.1); Chloride 104 mmol/L (98-107); Ferritin 47 ng/mL (8-252); Glucose 147 mg/dL (74-106); Sodium 140 mmol/L (136-145); Total Protein 6.2 g/dL (6.4-8.2)
[2020-08-08 14:28] LABS: FREE T4 1.05 ng/dL (0.76-1.46)
== END 2020-08-08 02:58 | disposition home or self-care (01) ==
LOC: LBO 02:57
PROVIDERS: PCP Nurse Practitioner Family; Visit Provider Nurse Practitioner Family
DX: E03.9 Hypothyroidism, unspecified (principal); D50.9 Iron deficiency anemia, unspecified
CPT/HCPCS: 36415; 80053; 85027; 82728; 83540; 83550; 84439; 84443

== ENCOUNTER 2020-11-04 13:41 | Outpatient (REF) | payer MEDICARE, OTHER, SELFPAY | END 2020-11-04 13:42 | disposition home or self-care (01) | LOC: LBN 13:41 | PROVIDERS: PCP Nurse Practitioner Family; Referring Provider Nurse Practitioner Family; Visit Provider Nurse Practitioner Family | DX: K13.0 Diseases of lips (principal) | CPT/HCPCS: 87077; 87070; 87186; 87205 ==

== ENCOUNTER 2021-04-04 02:20 | Outpatient (CLI) | payer MEDICARE, OTHER, SELFPAY ==
[2021-04-04 13:22] LABS: HCT 41.7 % (36.0-46.0); HGB 13.7 g/dL (11.2-15.7); MCH 31.9 pg (27.0-33.0); MCHC 32.9 % (32.0-36.0); MPV 10.9 fL (8.0-11.0); Platelet Count 126 10^3/uL (130-400); RDW 13.6 % (11.7-14.6); RDW-SD 48.8 fL; WBC 7.75 10^3/uL (4.4-10.8)
[2021-04-04 14:27] LABS: Iron 64 ug/dL (50-170); Total Iron Binding Capacity 277 ug/dL (250-450)
[2021-04-04 14:38] LABS: Anion Gap 8.5 mmol/L (3-11); BUN 18 mg/dL (7-18); CO2 26.5 mmol/L (21.0-32.0); CREATININE 0.7 mg/dL (0.55-1.02); Calcium 8.4 mg/dL (8.5-10.1); Calculated LDL 94 mg/dL (<100); Chloride 104 mmol/L (98-107); Cholesterol 183 mg/dL (<200); Ferritin 67 ng/mL (8-252); Glucose 84 mg/dL (74-106); HDL Cholesterol 72 mg/dL (40-60); Potassium 4.3 mmol/L (3.5-5.1); Sodium 139 mmol/L (136-145); TSH (W/Ref FT4) 0.25 uIU/mL (0.36-3.74); Triglyceride 89 mg/dL (<150)
[2021-04-04 14:57] LABS: FREE T4 1.04 ng/dL (0.76-1.46)
== END 2021-04-04 02:21 | disposition home or self-care (01) ==
LOC: LBO 02:20
PROVIDERS: PCP Nurse Practitioner Family; Visit Provider Nurse Practitioner Family
DX: E78.5 Hyperlipidemia, unspecified (principal); I10 Essential (primary) hypertension; D50.9 Iron deficiency anemia, unspecified; E03.9 Hypothyroidism, unspecified
CPT/HCPCS: 36415; 80048; 80061; 85027; 82728; 83540; 83550; 84439; 84443; 85025

== ENCOUNTER 2021-10-03 01:17 | Outpatient (CLI) | payer MEDICARE, OTHER, SELFPAY ==
[2021-10-03 12:22] LABS: HCT 40.1 % (36.0-46.0); HGB 13.2 g/dL (11.2-15.7); MCH 31.5 pg (27.0-33.0); MCHC 32.9 % (32.0-36.0); MCV 96 fL (80-95); MPV 10.9 fL (8.0-11.0); Platelet Count 144 10^3/uL (130-400); RBC 4.19 10^6/uL (3.93-5.22); RDW 13.2 % (11.7-14.6); RDW-SD 46.6 fL; WBC 8.23 10^3/uL (4.4-10.8)
[2021-10-03 13:10] LABS: Iron 68 ug/dL (50-170); Total Iron Binding Capacity 261 ug/dL (250-450); Transferrin Sat 26 % (15-50)
[2021-10-03 13:12] LABS: Ferritin 74 ng/mL (8-252)
== END 2021-10-03 01:18 | disposition home or self-care (01) ==
LOC: LBO 01:17
PROVIDERS: PCP Nurse Practitioner Family; Visit Provider Nurse Practitioner Family
DX: D50.9 Iron deficiency anemia, unspecified (principal)
CPT/HCPCS: 36415; 85027; 82728; 83540; 83550

== ENCOUNTER 2021-11-03 10:58 | Outpatient (REF) | payer MEDICARE, OTHER, SELFPAY ==
--- NOTE | 2021-11-03 09:30 | SKI_PTH ---
PATIENT: Elaine Eisenberg LOC: NCN #:[id number] AGE/SX: 81/F ROOM: RE11/03/[address]: Kiarra Denson : 1940 BED: DIS: 11/03/2021 SPEC #: [id number] RECD: 11/03/21 17:05 STATUS: JOSE FRANCISCO RECindy #: [id number] PAULINA: 11/03/21 09:[address]: Kiarra Denson DEPT: Surgical Specimen RECD BY: Marleni Roche ENTERED: 11/03/21 17:06 SP TYPE: YAMIL POOLE DR: Fern Carlson Tissues: 1 - SKIN BIOPSY(SHAVE/PUNCH) Procedures: SKIN LEVEL 4 Comments: [id number]
== END 2021-11-03 10:59 | disposition home or self-care (01) ==
LOC: NCHCN 10:58
PROVIDERS: PCP Nurse Practitioner Family; Visit Provider Physician Assistant Medical
DX: L57.0 Actinic keratosis (principal); Z85.828 Personal history of other malignant neoplasm of skin
CPT/HCPCS: 88305

== ENCOUNTER 2022-05-29 11:39 | Outpatient (CLI) | payer MEDICARE, SELFPAY ==
[2022-05-29 11:22] LABS: HCT 43.8 % (36.0-46.0); HGB 14.7 g/dL (11.2-15.7); MCH 32.6 pg (27.0-33.0); MCHC 33.6 % (32.0-36.0); MCV 97 fL (80-95); MPV 10.9 fL (8.0-11.0); Platelet Count 193 10^3/uL (130-400); RBC 4.51 10^6/uL (3.93-5.22); RDW 13.6 % (11.7-14.6); RDW-SD 48.8 fL
[2022-05-29 11:43] LABS: Anion Gap 7.5 mmol/L (3-11); BUN 22 mg/dL (7-18); CO2 31.5 mmol/L (21.0-32.0); CREATININE 0.8 mg/dL (0.55-1.02); Calcium 9.3 mg/dL (8.5-10.1); Calculated LDL 117 mg/dL (<100); Chloride 104 mmol/L (98-107); Cholesterol 206 mg/dL (<200); Estimated GFR 73.06 (mL/min/1.73m2); Ferritin 84 ng/mL (8-252); Glucose 65 mg/dL (74-106); HDL Cholesterol 75 mg/dL (40-60); Potassium 4.1 mmol/L (3.5-5.1); Sodium 143 mmol/L (136-145); TSH (W/Ref FT4) 2.06 uIU/mL (0.36-3.74); Triglyceride 72 mg/dL (<150)
== END 2022-05-29 11:40 | disposition home or self-care (01) ==
LOC: LBO 11:40
PROVIDERS: PCP Nurse Practitioner Family; Visit Provider Family Medicine
DX: I73.9 Peripheral vascular disease, unspecified (principal); E78.5 Hyperlipidemia, unspecified; E03.9 Hypothyroidism, unspecified; Z86.2 Personal history of diseases of the blood and blood-forming organs and certain disorders involving the immune mechanism
CPT/HCPCS: 36415; 80048; 80061; 85027; 82728; 84443

== ENCOUNTER 2022-07-24 00:25 | Outpatient (CLI) | payer MEDICARE, OTHER, SELFPAY ==
--- NOTE | 2022-07-24 | DI.MAMMO_ITS ---
Exam(s) MAMMO SCREENING EXAM: MAMMO SCREENING CLINICAL HISTORY: SCREENING FOR BREAST CANCER Z12.39 TECHNIQUE: Mammograms were interpreted according to the usual protocol including computer analysis w [employer] CAD system, tomosynthesis and C-view imaging. COMPARISON: 2012 through 2019 FINDINGS: The breasts are composed of heterogeneously dense fibroglandular densities, Breast Density category C . No suspicious masses or suspicious microcalcifications are seen. No skin thickening or abnormal axillary lymph nodes are seen. There has been no significant change from prior exams. IMPRESSION: BI-RADS Category 1, Negative mammogram. Yearly screening mammography is recommended. Breast Density Category C, heterogeneously Dense. The mammogram demonstrates the patient's breast tissue is dense. Dense breast tissue is very common a nd is not abnormal but dense breast tissue can make it harder to find cancer on a mammogram. Also, de nse breast tissue may increase breast cancer risk. This information about the result of the mammogram report was provided to the patient to raise their awareness. Use this report when you speak with the patient about their risks for breast cancer, which includes their family history. At that time, you may recommend additional screening tests (Ultrasound or MRI) as they might be useful based on their r isk. A negative radiographic report should not delay biopsy if a dominant or clinically suspicious mass is present. Up to ten percent of cancers are not identified on mammography. A negative report may reinforce clinical impression. Adenosis and dense breasts may obscure an underlying neoplasm. False positive reports average 6 to 10%.
--- NOTE | 2022-07-24 12:14 | DI.RAD_ITS ---
Exam(s) XR CHEST 2V PA LATERAL EXAM: XR CHEST 2V PA LATERAL CLINICAL HISTORY: ABNL CXR R91.8, HAD IN [place] W/ PNEUMONIA AND SOME RESIDUAL ABNORMALITY TECHNIQUE: 2D digital imaging was performed. COMPARISON: CR,XR XR CHEST 2V PA LATERAL from 09/12/2019 FINDINGS: HEART: Normal size. Aorta: Not dilated. PULMONARY VASCULATURE: Normal. LUNGS: Clear. PLEURAL SPACE: No pleural effusion or pneumothorax. BONE:Degenerative changes. IMPRESSION: No acute abnormality. DATA REPOSITORY: RADIATION DOSE DELIVERED:
== END 2022-07-24 00:45 ==
LOC: DI 00:25
PROVIDERS: PCP Nurse Practitioner Family; Visit Provider Family Medicine
DX: Z12.31 Encounter for screening mammogram for malignant neoplasm of breast (principal); R91.8 Other nonspecific abnormal finding of lung field
CPT/HCPCS: 77063; 77067; 71046

== ENCOUNTER 2022-07-28 01:43 | Outpatient (CLI) | payer MEDICARE, SELFPAY ==
--- NOTE | 2022-07-28 | DI.DEXA_ITS ---
Exam(s) XR DEXA BONE DENSITY W/WO SUZANNE EXAM: XR DEXA BONE DENSITY W/WO SUZANNE CLINICAL HISTORY: SCREENING FOR OSTEOPOROSIS IN POSTMENOPAUSAL WOMAN,Z78.0 TECHNIQUE: COMPARISON: No exams were available for comparison FINDINGS: Lateral Spine Image: Unremarkable. No compression deformities identified. The patient has had bilateral hip replacements. Right forearm: Total T-Score: -2.4 Total Z-Score: 1.0 T- and Z-scores: Findings are consistent with osteopenia. There is osteoporosis in the mid forearm w ith a T-score of -2.7. Lumbar Spine: Total T-Score: 0.3 Total Z-Score: 3.1 T- and Z-scores: Within normal limits. 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
== END 2022-07-28 02:03 ==
LOC: DI 01:43
PROVIDERS: PCP Nurse Practitioner Family; Visit Provider Family Medicine
DX: Z78.0 Asymptomatic menopausal state (principal); Z13.820 Encounter for screening for osteoporosis; M81.0 Age-related osteoporosis without current pathological fracture
CPT/HCPCS: 77080

== ENCOUNTER → 2022-08-27 10:35 | Outpatient (BNVA) | payer MEDICARE, SELFPAY | PROVIDERS: PCP Family Medicine; Referring Provider Nurse Practitioner Family; Visit Provider Physical Therapy Assistant | DX: Z12.11 Encounter for screening for malignant neoplasm of colon (principal); Z86.010 Personal history of colon polyps ==

== ENCOUNTER 2022-09-08 07:04 | Day surgery (SDC) | payer MEDICARE, SELFPAY ==
[2022-09-08 07:10] VITALS: BP 145/65; PULSE 80; RESP 16; TEMP 36.2; O2SAT 96
--- NOTE | 2022-09-08 07:37 | ANES.PREOP_ITS ---
General Info Date of Service Date Performed: 09/08/22 Height: 5 ft 4.5 in Weight: 56.7 kg Body Mass Index (BMI): 21.1 Surgical Procedure: Operation Date: 09/08/22 08:20 Proposed Procedure Side Surgeon sherwin Martínez, DO Meds Allergies and Home Medications Allergies Allergy/AdvReac Type Severity Reaction Status Date / Time poison glory extract Allergy Verified 09/08/22 07:25 poison oak extract Allergy Verified 09/08/22 07:25 atorvastatin [From Lipitor] AdvReac Intermediate rash Verified 09/08/22 07:25 Home Medication Medication Instructions Recorded aspirin 81 mg chewable tablet 81 mg PO DAILY 06/20/14 (Aspirin Low-Strength) fluticasone propionate 115 2 puff inhalation BID 06/20/14 mcg-salmeterol 21 mcg/actuation HFA inhaler (Advair HFA) ascorbate calcium (vitamin C) 500 500 mg PO DAILY 09/15/19 mg tablet levothyroxine 100 mcg tablet 75 mcg PO DAILY 09/15/19 multivitamin (Daily Multi-Vitamin 1 tab PO DAILY 09/15/19 tablet) omega-3 fatty acids 1,000 mg 1,000 mg PO DAILY 09/15/19 capsule (Fish Oil Concentrate) omeprazole 40 mg capsule,delayed 20 mg PO DAILY 06/15/22 release rosuvastatin 10 mg tablet (Crestor) 20 mg PO DAILY 06/15/22 camphor-menthol 0.5 %-0.5 % lotion 1 applic topical BID-TID PRN 07/30/22 (Sarna Original) diclofenac sodium 1 % topical gel 2 g topical QID 07/30/22 (Voltaren Arthritis Pain) mupirocin 2 % topical ointment 1 applic topical BID 07/30/22 bisacodyl 5 mg tablet,delayed 5 mg PO ONCE #4 tabs 08/27/22 release (Dulcolax (bisacodyl)) polyethylene glycol 3350 17 17 g PO ONCE #238 grams 08/27/22 gram/dose oral powder trazodone 50 mg tablet 50 mg PO .QHS 08/27/22 triazolam 0.25 mg tablet 0.25 mg PO QHS PRN 08/27/22 Current Visit Medications: Current Medications Generic Name Dose Route Start Last Admin Trade Name Freq PRN Reason Stop Dose Admin Hyoscyamine Sulfate 0.125 mg 09/08/22 07:52 Hyoscyamine 0.125 Mg Sl/Oral/Chew SL 10/08/22 07:51 DIRECTED PRN Ringer's Solution 1,000 mls @ 80 mls/hr 09/08/22 06:00 IV 10/07/22 23:59 INFUSION [facility] IV Miscellaneous Supplies 1 each 09/08/22 06:00 Iv Access IV 10/07/22 23:59 DIRECTED CHARI Ondansetron HCl 4 mg 09/07/22 19:52 Ondansetron 4 Mg/2 Ml Vial IVP 10/07/22 19:51 Q4H PRN PRN Nausea / Vomiting Sodium Chloride 0 ml 09/08/22 06:00 Normal Saline Flush 10 Ml Syr IV 10/07/22 23:59 PRN PRN Sodium Chloride 0 ml 09/08/22 06:00 Normal Saline 10 Ml Vial IJ 10/07/22 23:59 DIRECTED PRN Sterile Water 0 ml 09/08/22 06:00 Water,Injection,Sterile 10 Ml Vial IJ 10/07/22 23:59 DIRECTED PRN PFSH Active Problems Active Problems: Problem Status Onset Code Hyperlipidemia E78.5 Esophagitis, reflux K21.00 Hypothyroidism E03.9 PAD (peripheral artery disease) I73.9 Medical History Medical History Anemia Anxiety disorder Asthma Cataracts, bilateral Hemorrhoids Hx of adenomatous polyp of colon Hx of cyst of breast Left, removal Hypocalcemia IBS (irritable bowel syndrome) Shortness of breath Pt. states that this is from her anemia, and since has got better Sleep disorder Tachycardia Pt. states she had a cardiology work-up r/t 2 weeks ago, they beleive this is anemia related, pt has been taking iron supplements and pt. stated her HR is lowered since then Surgical History Surgical History H/O bilateral hip replacements History of intestinal surgery Per pt. The tissue that holds my bowels in place got a hole in it History of surgery on wrist bilateral dupuytrens History of tonsillectomy Hx of cataract surgery Hx of colonoscopy Hx of shoulder surgery Right Tobacco Smoking/Tobacco Use Status: Never Alcohol Alcohol Intake: current Alcohol intake frequency: 0-2 drinks per day Alcohol type: wine and hard liquor Substance Use Substance use: Never Substance use type: does not use Vital Signs and Lab Results Vital Signs Most Recent Vital Signs in EMR: Most Recent Vital Signs Temp Pulse Resp BP Pulse Ox 36.2 C L 80 16 145/65 H 96 09/08/22 07:10 09/08/22 07:10 09/08/22 07:10 09/08/22 07:10 09/08/22 07:10 Lab Results Blood Type / Crossmatch: No Data to Display Complete Blood Count: No Data to Display Complete Metabolic Panel: No Data to Display Liver Function Panel: No Data to Display Coagulation Panel: No Data to Display Cardiac Panel: No Data to Display Arterial Blood Gas: No Data to Display Venous Blood Gas: No Data to Display Pancreas Panel: No Data to Display Thyroid Panel: No Data to Display Infectious Disease: No Data to Display Blood Cultures: No Data to Display Toxicology Panel: No Data to Display Imaging and Studies Imaging and Studies Study information below may be from another EMR and interpreted by another provider. Please see original notes in EMR for more complete details. Stress Test Summary: 07/10/2019: Stress ECG Conclusion 1. The patient exercised for 6 min (8 METS). She reached 95% of maximal predicted heart rate. Rate pressure product was 20k. Exercise was stopped due to fatigue. 2. Patient no symptoms suggestive of ischemia 3. There was no evidence of ischemia on the ECG portion of this exam. 4. The Patiño Score ( 6) estimates an annual cardiovascular mortality of 0% and a five year survival of 95%. Using the Patiño Score there is a low probability of any angiographic coronary disease. Anesthesia Assessment and Plan Anesthesia History Personal History: No History of Anesthesia Complications Family History: No Family History of Anesthesia Complications Exercise Tolerance Exercise Tolerance: Metabolic Equivalents>4 Pertinent Negatives Pertinent Negatives: No Symptoms of GERD and No Major Cardiovascular Symptoms or Complaints Cardiac & Pulmonary Exam Cardiac Exam: Normal S1/S2 Heart Sounds Pulmonary Exam: Clear Bilateral Breath Sounds Implantable Cardiac Device Does patient have a Pacemaker or an ICD?: No Airway Exam Known Difficult Airway: No Mallampati Class: 2 Mouth Opening: Normal (> 3cm) Thyromental Distance: Greater than 3 cm Neck Range of Motion: Full ROM Neck Circumference: Normal Teeth Condition: Normal Dentition ASA Classification ASA Score: ASA 3 Emergency Case?: No NPO Status NPO Status: NPO Clears >2 hours, Solids >8 hours Anesthesia Plan Resuscitation Status: Full Code Anesthesia Technique: General Anesthesia Airway Planned: Natural Airway Monitors Used: Standard Monitors
[2022-09-08 07:41] VITALS: BMI 21.1
[2022-09-08] MEDS: Lactated Ringers 1,000 ML 80 ML IV (07:43)
--- NOTE | 2022-09-08 09:20 | BOWEL_PTH ---
PATIENT: Elaine Eisenberg LOC: VIRY U#:[id number] AGE/SX: 82/F ROOM: RE09/08/[address]: Yoselin Martínez : 1940 BED: DIS: 09/08/2022 SPEC #: [id number] RECD: 09/08/22 12:53 STATUS: JOSE FRANCISCO REQ #: [id number] PAULINA: 09/08/22 09:[address]: Yoselin Martínez DEPT: Surgical Specimen RECD BY: Talia Moeller ENTERED: 09/08/22 12:54 SP TYPE: Bowel OTHR DR: Fatuma Chen Tissues: 1 - BIOPSY BOWEL Procedures: GROSS AND MICRO LEVEL 4 Comments: [id number]
[2022-09-08 09:37] VITALS: BP 136/59; PULSE 76; RESP 18; TEMP 36; O2SAT 96
[2022-09-08 10:05] VITALS: BP 141/52; PULSE 63; RESP 16; TEMP 36.4; O2SAT 97
--- NOTE | 2022-09-08 10:08 | W.ANESPOSTOP ---
Postoperative Evaluation Date, Time and Location Date Performed: 09/08/22 Time Performed: 09:45 Patient Location: Day Surgery Unit Vital Signs Most Recent Imported Vital Signs: Most Recent Vital Signs Temp Pulse Resp BP Pulse Ox 36 C L 76 18 136/59 L 96 09/08/22 09:37 09/08/22 09:37 09/08/22 09:37 09/08/22 09:37 09/08/22 09:37 Assessment Mental Status: Awake (Alert & Oriented to Patient Baseline) Airway and Respiratory Function: Patent airway with normal (patient baseline) respiratory exam Cardiovascular Function: Hemodynamically Stable Hydration Status: Adequately Hydrated Nausea & Vomiting: No Nausea or Vomiting Pain: Pt. Denies Any Pain Peripheral Nerve Block: Patient did not receive a nerve block Postoperative Comments:: Pain is 0/10.
--- NOTE | 2022-09-08 10:51 | PDOC.DSDIS_ITS ---
Date of service: 09/08/22 Time of Service: 10:51 Discharge Plan Disposition Patient Disposition: Home Condition: Good Discharge Details Reason For Visit: colon scope Attending Provider: Yoselin Martínez Primary Care Provider: Fatuma Chen Home Meds and New Rx's Prescriptions: New Metamucil Sugar-Free (aspart) 3.4 gram/5.8 gram powder 5.035410 g PO DAILY Qty: 1040 0RF Rx Instructions: start w/ a teaspoon in juice or water daily for two weeks and gradually increase in a tablespoon daily Continued omega-3 fatty acids [Fish Oil Concentrate] 1,000 mg capsule 1,000 mg PO DAILY ascorbate calcium (vitamin C) 500 mg tablet 500 mg PO DAILY multivitamin [Daily Multi-Vitamin] Tablet 1 tab PO DAILY omeprazole 40 mg capsule,delayed release(DR/EC) 20 mg PO DAILY aspirin [Aspirin Low-Strength] 81 MG tablet,chewable 81 mg PO DAILY fluticasone propion-salmeterol [Advair HFA] 8 GM HFA aerosol inhaler 2 puff Inhalation BID levothyroxine 100 mcg tablet 75 mcg PO DAILY rosuvastatin [Crestor] 10 mg tablet 20 mg PO DAILY Sarna Original 0.5-0.5 % lotion 1 applic topical BID-TID PRN diclofenac sodium [Voltaren Arthritis Pain] 1 % gel 2 g topical QID Rx Instructions: apply to single elbow, wrist or hand; for hand includes palm/fingers/back of hand mupirocin 2 % ointment 1 applic topical BID triazolam 0.25 mg tablet 0.25 mg PO QHS PRN trazodone 50 mg tablet 50 mg PO .QHS Discontinued bisacodyl [Dulcolax (bisacodyl)] 5 mg tablet,delayed release (DR/EC) 5 mg PO ONCE Qty: 4 0RF Rx Instructions: Take per colonoscopy instructions provided by ordering providers office polyethylene glycol 3350 17 gram/dose powder 17 g PO ONCE Qty: 238 0RF Rx Instructions: Take per colonoscopy instructions provided by ordering providers office Discharge Instructions Additional Instructions: [facility] Colonoscopy Post- Op Instructions Instructions for Everyone who is given Anest hesia: For your safety, please do the following for the next twenty-four (24) hours: *Do Not operate a motor vehicle (car, truck, motorcycle, etc.) *Do Not drink alcoholic beverages or use any recreational drugs for the first 24 hours or while taking pain medications. The medications in your body may have a reaction that can be dangerous. *Do Not make any important decisions or sign any important papers. Findings: Very small polyp. My office will send a letter in 2 to 3 weeks time stating what type of polyp that was. Follow up: As this polyp was very small, I do not feel you need any repeat colonoscopies at this time. Of course, you should continue to have a yearly physical exam, If you should ever notice any pain or difficulty having a bowel movement, blood in the stool, unexplained weight loss, or change in your bowel habits, please contact your health provider 1. No lifting over 20 pounds or strenuous activity for the first 24 hours after your procedure. After 24 hours there are no restrictions on your activity but you may feel fatigued for a few days. 2. After you arrive home you may have a light meal and return to your normal diet as you can tolerate it without feeling sick to your stomach. 3. You may have a bloated, gaseous feeling in your belly (abdomen) after a colonoscopy. Passing gas and belching will help. Walking or lying down on your left side with your knees flexed may relieve the discomfort. Call the office at [phone] (Office) or [phone] (Hospital) right away if you notice any of the following: a.Vomiting of blood or ?coffee ground stools?. b.Rectal bleeding 1Tbsp, blood clots or continuous bleeding. c.Severe belly (abdominal) pain. d.A hard distended belly (abdomen) and an inability to pass gas. 4. Please don?t expect to have a normal BM (bowel movement) for 2-3 days after your procedure. 5. If there are questions regarding the findings of your procedure, please contact your doctor 6. If you are unable to contact your doctor with a problem, contact the hospital at [phone]. 7. Continue all your regular medications unless directed otherwise. I understand the above instructions and have no questions. Signature of Patient or Adult Escort Name of Responsible Adult Escort Signature of Nurse Date/Time Activity:: see above Diet:: As Tolerated Discharge Orders Discharge Orders: Discharge Order (Routine); Ordered 09/08/22 Ordered By: Yoselin Martínez DS: Diagnosis Discharge Diagnosis (1) Hyperlipidemia: Status: Acute (2) Esophagitis, reflux: Status: Acute (3) Hypothyroidism: Status: Chronic (4) PAD (peripheral artery disease): Status: Acute (5) Anemia: (6) Asthma: (7) Cataracts, bilateral:
--- NOTE | 2022-09-08 11:36 | PDOC.DSDIS_ITS ---
Date of service: 09/08/22 Time of Service: 09:30 Discharge Plan Disposition Patient Disposition: Home Condition: Good Discharge Details Reason For Visit: colon scope Attending Provider: Yoselin Martínez Primary Care Provider: Fatuma Chen Home Meds and New Rx's Prescriptions: New Metamucil Sugar-Free (aspart) 3.4 gram/5.8 gram powder 5.771033 g PO DAILY Qty: 1040 0RF Rx Instructions: start w/ a teaspoon in juice or water daily for two weeks and gradually increase in a tablespoon daily Continued omega-3 fatty acids [Fish Oil Concentrate] 1,000 mg capsule 1,000 mg PO DAILY ascorbate calcium (vitamin C) 500 mg tablet 500 mg PO DAILY multivitamin [Daily Multi-Vitamin] Tablet 1 tab PO DAILY omeprazole 40 mg capsule,delayed release(DR/EC) 20 mg PO DAILY aspirin [Aspirin Low-Strength] 81 MG tablet,chewable 81 mg PO DAILY fluticasone propion-salmeterol [Advair HFA] 8 GM HFA aerosol inhaler 2 puff Inhalation BID levothyroxine 100 mcg tablet 75 mcg PO DAILY rosuvastatin [Crestor] 10 mg tablet 20 mg PO DAILY Sarna Original 0.5-0.5 % lotion 1 applic topical BID-TID PRN diclofenac sodium [Voltaren Arthritis Pain] 1 % gel 2 g topical QID Rx Instructions: apply to single elbow, wrist or hand; for hand includes palm/fingers/back of hand mupirocin 2 % ointment 1 applic topical BID triazolam 0.25 mg tablet 0.25 mg PO QHS PRN trazodone 50 mg tablet 50 mg PO .QHS Discontinued bisacodyl [Dulcolax (bisacodyl)] 5 mg tablet,delayed release (DR/EC) 5 mg PO ONCE Qty: 4 0RF Rx Instructions: Take per colonoscopy instructions provided by ordering providers office polyethylene glycol 3350 17 gram/dose powder 17 g PO ONCE Qty: 238 0RF Rx Instructions: Take per colonoscopy instructions provided by ordering providers office Discharge Instructions Additional Instructions: [facility] Colonoscopy Post- Op Instructions Instructions for Everyone who is given Anest hesia: For your safety, please do the following for the next twenty-four (24) hours: *Do Not operate a motor vehicle (car, truck, motorcycle, etc.) *Do Not drink alcoholic beverages or use any recreational drugs for the first 24 hours or while taking pain medications. The medications in your body may have a reaction that can be dangerous. *Do Not make any important decisions or sign any important papers. Findings: Very small polyp. My office will send a letter in 2 to 3 weeks time stating what type of polyp that was. Follow up: As this polyp was very small, I do not feel you need any repeat colonoscopies at this time. Of course, you should continue to have a yearly physical exam, If you should ever notice any pain or difficulty having a bowel movement, blood in the stool, unexplained weight loss, or change in your bowel habits, please contact your health provider 1. No lifting over 20 pounds or strenuous activity for the first 24 hours after your procedure. After 24 hours there are no restrictions on your activity but you may feel fatigued for a few days. 2. After you arrive home you may have a light meal and return to your normal diet as you can tolerate it without feeling sick to your stomach. 3. You may have a bloated, gaseous feeling in your belly (abdomen) after a colonoscopy. Passing gas and belching will help. Walking or lying down on your left side with your knees flexed may relieve the discomfort. Call the office at [phone] (Office) or [phone] (Hospital) right away if you notice any of the following: a.Vomiting of blood or ?coffee ground stools?. b.Rectal bleeding 1Tbsp, blood clots or continuous bleeding. c.Severe belly (abdominal) pain. d.A hard distended belly (abdomen) and an inability to pass gas. 4. Please don?t expect to have a normal BM (bowel movement) for 2-3 days after your procedure. 5. If there are questions regarding the findings of your procedure, please contact your doctor 6. If you are unable to contact your doctor with a problem, contact the hospital at [phone]. 7. Continue all your regular medications unless directed otherwise. I understand the above instructions and have no questions. Signature of Patient or Adult Escort Name of Responsible Adult Escort Signature of Nurse Date/Time Stand Alone Forms: Anesthesia Discharge Inst., Jose Ragland ([facility]U) Activity:: see above Diet:: As Tolerated Discharge Orders Discharge Orders: Discharge Order (Routine); Ordered 09/08/22 Ordered By: Yoselin Martínez Discharge Data Discharge Date/Time-TO BE ENTERED AT DEPARTURE: 09/08/22 11:10 DS: Diagnosis Discharge Diagnosis (1) Hyperlipidemia: Status: Acute (2) Esophagitis, reflux: Status: Acute (3) Hypothyroidism: Status: Chronic (4) PAD (peripheral artery disease): Status: Acute (5) Anemia: (6) Asthma: (7) Cataracts, bilateral: (8) Serrated adenoma of colon: Status: Acute Asessment and Plan: The patient is seen and examined after their colonoscopy.? The patient has been able to pass gas.? They are not having abdominal pain.? They have been able to tolerate liquids and a snack.? They do not have any nausea or vomiting.? They are not having any chest pain or shortness of breath.??? They are not having any rectal bleeding. Their vital signs have been stable-see nursing notes. We discussed findings during their colonoscopy, and any biopsies that were done/polyps that were removed. The patient will be sent a letter with any biopsy results, and when to repeat the colonoscopy.-see discharge instructions. Patient was given explicit instructions to follow-up regarding colonoscopy-refer to discharge instructions.? We reviewed resumption of medications.Patient verbalized understanding and discharged in stable and satisfactory condition- See nursing notes CBC White Blood Count 10.20 10^3/uL (4.4-10.8) 05/29/22 Red Blood Count 4.51 10^6/uL (3.93-5.22) 05/29/22 Hemoglobin 14.7 g/dL (11.2-15.7) 05/29/22 Hematocrit 43.8 % (36.0-46.0) 05/29/22 Mean Corpuscular Volume 97 fL (80-95) H 05/29/22 Mean Corpuscular Hemoglobin 32.6 pg (27.0-33.0) 05/29/22 Mean Corpuscular Hemoglobin Concent 33.6 % (32.0-36.0) 09/13 Red Cell Distribution Width 13.6 % (11.7-14.6) 05/29/22 Platelet Count 193 10^3/uL (130-400) 05/29/22 Mean Platelet Volume 10.9 fL (8.0-11.0) 05/29/22 Neutrophils % 75.4 07/04/19 Lymphocytes % 11.8 07/04/19 Monocytes % 8.8 07/04/19 Eosinophils % 3.3 07/04/19 Basophils % 0.6 07/04/19 Immature Granulocytes % 0.1 % 07/04/19 Comprehensive Metabolic Panel Sodium 143 mmol/L (136-145) 05/29/22 10:45 Potassium 4.1 mmol/L (3.5-5.1) 05/29/22 10:45 Chloride 104 mmol/L (98-107) 05/29/22 10:45 Carbon Dioxide 31.5 mmol/L (21.0-32.0) 05/29/22 10:45 BUN 22 mg/dL (7-18) H 05/29/22 10:45 Creatinine 0.8 mg/dL (0.55-1.02) 05/29/22 10:45 Estimated GFR/1.73 m2 >= 60.00 (mL/min/1.73m2) 04/04/21 13:10 Glucose 65 mg/dL (74-106) L 05/29/22 10:45 Calcium 9.3 mg/dL (8.5-10.1) 05/29/22 10:45 Total Bilirubin 0.5 mg/dL (0.2-1.0) 08/08/20 12:15 ALT 37 U/L (14-59) 08/08/20 12:15 AST 31 U/L (15-37) 08/08/20 12:15 Alkaline Phosphatase 86 U/L (46-116) 08/08/20 12:15 Total Protein 6.2 g/dL (6.4-8.2) L 08/08/20 12:15 Albumin 3.6 g/dL (3.4-5.0) 08/08/20 12:15
--- NOTE | 2022-09-08 17:20 | COLE_ITS ---
Date of service: 09/08/22 Time of Service: 11:00 Colonoscopy Report Date of procedure: 09/08/22 Pre-op diagnosis general: serrated adenoma Post-op diagnosis procedure note: same Surgeon: Yoselin Martínez Anesthesia Type: General:No Airway Estimated blood loss (mL): 0 Pathology: other Complications: None Disposition: same day Prep: Miralax/Dulcolax Retraction Time: 9 mins Procedure Description: After informed consent was obtained the patient was taken to the procedure room and placed in a left decubitous position. Monitors were applied and a time out was done. The patients name, date of , procedure, allergies to medications and metal in their body was reviewed. The patient was then sedated. Once sedated and comfortable a rectal exam was done. External exam was normal. Internal exam revealed a normal sphincter tone and no palpable masses. The scope was then introduced and retrofelexed. No internal hemorrhoids were identified. The scope was then advanced to the cecum w/out difficulty. Her colon is somewhat redundant, and we did require abdominal pressure in order to manipulate the scope into the cecum. the TI and appendiceal orifice were identified. The prep was BBPS 3 in all segments for total of 9. The scope was then slowly retracted over 8 minutes back into the rectum. She had a flat 5 mm polyp in the rectum. This was removed with a cold biting forcep. All specimen is retrieved and no bleeding is note. There are no diverticula visualized today. The mucosa is pink and healthy with a normal vascular pattern. the scope was removed and the patient was woken up and taken back to Same day surgery in stable condition. The patient tolerated the procedure well and there were no immediate complications. Follow up: The patient is not advised to have any further screening colon oscopies, unless they develop changes in bowel habits or other new gastrointestinal complaints. See discharge orders.
== END 2022-09-08 11:10 | disposition home or self-care (01) ==
PROVIDERS: PCP Family Medicine; Visit Provider Surgery
PROC: 0DJD8ZZ Inspection of Lower Intestinal Tract, Via Natural or Artificial Opening Endoscopic (ICD-10-PCS; CPT 45378; principal; 2022-09-08 08:15)
DX: Z12.11 Encounter for screening for malignant neoplasm of colon (principal); K62.1 Rectal polyp; Z86.010 Personal history of colon polyps
CPT/HCPCS: 45380; 88305

== ENCOUNTER → 2023-03-16 03:07 | Outpatient (CLI) | payer MEDICARE, SELFPAY ==
--- NOTE | 2023-03-16 13:30 | DI.US_ITS ---
APPROVED REPORT EXAM: Comprehensive 2D, Doppler, and color-flow Echocardiogram Patient Location: Out-Patient Manufacturing Laborer: Benny Valenzuela RDCS (AE) Indications: systolic heart murmur Conclusion 1. Normal chamber sizes 2. Normal LV function, EF 65. Normal RV function. 3. Aortic sclerosis without stenosis.Mild AI. Mild MR/TR. No phtn. 4. No intracardiac shunt. 5. No pericardial effusion. Wall motion Left Ventricle The left ventricle is normal size. The left ventricular systolic function is normal. The left ventric ular ejection fraction is within the normal range. There is normal left ventricular wall thickness. T here is normal LV segmental wall motion. There is no ventricular septal defect visualized. LVEF is 63 -65%. Right Ventricle The right ventricle is normal size. The right ventricular systolic function is normal. Atria The left atrium size is normal. The right atrium size is normal. The interatrial septum is intact wit h no evidence for an atrial septal defect. Aortic Valve The Aortic valve is sclerotic. Aortic valve is trileaflet. There is no aortic valvular stenosis. Mild aortic regurgitation. Mitral Valve Moderate mitral annular calcification. No evidence of mitral valve stenosis. Trace mitral regurgitati on. Tricuspid Valve The tricuspid valve is normal in structure. There is no tricuspid valve stenosis. Mild tricuspid regu rgitation. The RVSP is 20.7 mmHg. Pulmonic Valve The pulmonary valve is normal in structure. There is no pulmonic valvular stenosis. Mild pulmonic reg urgitation. Great Vessels The aortic root is normal in size. The ascending aorta is normal in size. IVC is normal in size and c ollapses >50% with inspiration. Pericardium Mild circumferential pericardial effusion. 2D Dimensions IVSD d PLAX 0.67 cm F: 0.6-1.0 Ao Root d 2.28 cm F: 2.7 - 3.3 LVPW d PLAX 0.75 cm F: 0.6 - 1.0 Ao Asc Diam d 2.97 cm F: 2.3 - 3.1 LVID d PLAX 3.94 cm F: 3.8 - 5.2 LVDs 2.55 cm F: 2.2 - 3.5 LV EF Teichholz 65.1 % FS 35.12 % LV EDV (Teich) 67.4 mL LV ESV (Teich) 23.5 mL Stroke Vol Index (Teich) 27.39 Auto EF LV EDV A4C 76.7 mL LV EDV A2C 89.7 mL LV EDV BP 83.0 mL LV ESV A4C 27.5 mL LV ESV A2C 33.4 mL LV ESV BP 30.2 mL LVEF(%) A4C 64.2 % LVEF(%) A2C 62.7 % LVEF(%) BP 63.6 % LV SV A4C 49.3 ml LV SV A2C 56.3 ml LV SV BP 52.8 ml LV CO A4C 3.2 L/min LV CO A2C 3.5 L/min LV CO BP 3.3 L/min HR A4C 64.75 BPM HR A2C 61.65 BPM LV EDV Index (BP) LA Volume LA Length A4C 4.8 cm LA Length A2C 4.8 cm LA Area A4C s 11.33 cm2 LA Area A2C s 14.59 cm2 LA Vol A4C A-L 22.78 mL LA Vol A2C A-L 37.36 mL LA Vol Biplane A-L 29.3 mL LA Vol/BSA A4C A-L LA Vol/BSA A2C A-L LA Vol/BSA BP A-L 18.3 mL/m2 LA Vol A4C MOD 21.2 mL LA Vol A2C MOD 36.5 mL LA Vol BP MOD 28.0 mL RA Volume RA Area A4C 11.2 cm2 RA ESV A4C (A-L) 28.1mL RA Vol/BSA A4C A-L RA Length A4C 3.8 cm RA ESV A4C (MOD) 26.1mL LV Diastology MV E' medial 0.080 (>0.07 m/s) MV E Vmax 0.87 (0.4-1.3 m/s) MV E/E' MED 10.91 (<14) MV A Vmax 0.85 (0.4-1.3 m/s) MV E' lateral 0.076 (>0.1 m/s) E/A Ratio 1.0 MV E/E' LAT 11.50 (<14) MV E' Average 0.078 m/s MV E/E'(average) 11.20 Aortic Valve AoV Vmax 1.96 m/s LVOT Vmax 0.95 m/s AoV Peak Grad 33.7 mmHg LVOT Peak Grad 3.6 mmHg AoV Area (Vmax) 0.92 cm2 LVOT VTI 0.257 m AoV VTI 0.473 m LVOT Mean Grad 2.1 mmHg AoV Mean Sabas. 1.41 m/s LVOT SV 49.34 mL AoV Mean Grad 8.9 mmHg LVOT Diam s 1.55 cm AoV Area (VTI) 1.04 cm2 AV Regurg Peak Gr. 51.95 mmHg Velocity Ratio 0.48 AR Decel Prentiss 2.0m/sec2 AR DT 1820 msec AR PHT 528 msec AR Vmax 3.61 m/s Mitral Valve MV DT 218 (160-240 msec) Pulmonary Valve PV Vmax 1.19 (0.5-1.5 m/s) RVOT Vmax 0.56 m/s PV Peak Grad 5.7 mmHg RVOT Peak Gr. 1.3 mmHg PV Mean Sabas 0.72 m/s RVOT VTI 0.124 m PV Mean Grad 2.5 mmHg RVOT Mean Gr. 0.8 mmHg Tricuspid Valve RA Pressure 3.00 mmHg TR Vmax 2.10 m/s TR Peak Grad 17.7 mmHg RVSP (TR) 20.7 mmHg
== END ==
PROVIDERS: PCP Family Medicine; Visit Provider Family Medicine
DX: R01.1 Cardiac murmur, unspecified (principal)
CPT/HCPCS: 93306

== ENCOUNTER → 2023-03-31 09:11 | Outpatient (BNVA) | payer MEDICARE, SELFPAY | PROVIDERS: PCP Family Medicine; Referring Provider Family Medicine; Visit Provider Podiatrist | DX: L60.0 Ingrowing nail (principal); Q82.8 Other specified congenital malformations of skin; I73.9 Peripheral vascular disease, unspecified; M79.671 Pain in right foot; L56.5 Disseminated superficial actinic porokeratosis (DSAP) | CPT/HCPCS: 11750; 17110 ==

== ENCOUNTER → 2023-04-15 15:16 | Outpatient (BNVA) | payer MEDICARE, SELFPAY | PROVIDERS: PCP Family Medicine; Referring Provider Family Medicine; Visit Provider Podiatrist | DX: L60.0 Ingrowing nail; Q82.8 Other specified congenital malformations of skin; I73.9 Peripheral vascular disease, unspecified; M79.671 Pain in right foot | CPT/HCPCS: 99213 ==

== ENCOUNTER 2023-05-11 12:49 | Emergency (ER) | payer MEDICARE, SELFPAY ==
[2023-05-11] VITALS (22 sets, daily range): BP systolic 144–191; BP diastolic 60–74; PULSE 70–88; RESP 8–23; O2SAT 94–96
--- NOTE | 2023-05-11 12:45 | RT.EKG_ITS ---
APPROVED REPORT Exam: Resting ECG Reason for Exam: Chest Pain Patient Location: E HR:77 bpm ECG Measurements Heart Rate 77 AXIS NV 154 P 108 QRSd 76 QRS -60 QT 382 T 36 QTc 451 Conclusion Sinus rhythm...normal P axis, V-rate 60- 99 Sinus pause...long R-R interval, normal QRSd Left anterior fascicular block...axis(240,-40), init forces inf sinus rhtyhm, left axis, st depression II III aVF
--- NOTE | 2023-05-11 13:01 | W.ED.GENAD ---
Discharge Plan Disposition Patient Disposition: Home Condition: Good Discharge Details Clinical Impression: Cough, Heart murmur, systolic, Chest pain Primary Care Provider: Fatuma Chen ED Provider: Carmen Dasilva Home Meds and New Rx's Prescriptions: Continued omega-3 fatty acids [Fish Oil Concentrate] 1,000 mg capsule 1,000 mg PO DAILY multivitamin [Daily Multi-Vitamin] Tablet 1 tab PO DAILY omeprazole 40 mg capsule,delayed release(DR/EC) 20 mg PO DAILY aspirin [Aspirin Low-Strength] 81 MG tablet,chewable 81 mg PO DAILY fluticasone propion-salmeterol [Advair HFA] 8 GM HFA aerosol inhaler 2 puff Inhalation BID levothyroxine 100 mcg tablet 75 mcg PO DAILY rosuvastatin [Crestor] 10 mg tablet 20 mg PO DAILY Sarna Original 0.5-0.5 % lotion 1 applic topical BID-TID PRN diclofenac sodium [Voltaren Arthritis Pain] 1 % gel 2 g topical QID Rx Instructions: apply to single elbow, wrist or hand; for hand includes palm/fingers/back of hand mupirocin 2 % ointment 1 applic topical BID triazolam 0.25 mg tablet 0.25 mg PO QHS PRN trazodone 50 mg tablet 50 mg PO .QHS Discharge Instructions Instructions: Chest Pain (ED), Acute Cough (ED) Additional Instructions: X-ray and labs are reassuring here today. No acute change on your EKG. As we discussed, I am concerned that you need further evaluation with stress test and would recommend that you follow-up with your primary care doctor to discuss this further and discuss possible referral. Please encourage hydration. Please continue to monitor your symptoms to try to identify any triggers. If you develop any new or worsening symptoms please seek care urgently once again. Otherwise, please follow-up with your primary care in the next week for reevaluation. Monitor your blood pressure at home while you are more comfortable and calm, discuss further with your primary care. Referrals: Fatuma Chen MD [Primary Care Provider] - [facility] General Date/Time Provider Initiated Documentation: 05/11/23 13:01. Limitations to Documentation: no limitations. Information obtained by: patient, family (significant other), RN notes reviewed and old records reviewed. History of Present Illness 83 year old F presents to the emergency department with the chief complaint of chest pain, described as mild, Quality is described as aching, and is localized to the chest. Patient reports no radiation. Patient started experiencing this month(s) and it has been intermittent. No relieving factors improve symptom(s), No exacerbating factors reported . Patient notes chest pain; denies cough, fever/chills, headaches, loss of appetite, malaise, nausea/vomiting, shortness of breath, syncope and weakness. Patient did receive the following treatments prior to arrival, none Related Data Home Medications Medication Instructions Recorded Confirmed aspirin 81 mg chewable tablet 81 mg PO DAILY 06/20/14 05/11/23 (Aspirin Low-Strength) fluticasone propionate 115 2 puff inhalation BID 06/20/14 05/11/23 mcg-salmeterol 21 mcg/actuation HFA inhaler (Advair HFA) levothyroxine 100 mcg tablet 75 mcg PO DAILY 09/15/19 05/11/23 multivitamin (Daily Multi-Vitamin 1 tab PO DAILY 09/15/19 05/11/23 tablet) omega-3 fatty acids 1,000 mg 1,000 mg PO DAILY 09/15/19 05/11/23 capsule (Fish Oil Concentrate) omeprazole 40 mg capsule,delayed 20 mg PO DAILY 06/15/22 05/11/23 release rosuvastatin 10 mg tablet (Crestor) 20 mg PO DAILY 06/15/22 05/11/23 camphor-menthol 0.5 %-0.5 % lotion 1 applic topical BID-TID PRN 07/30/22 05/11/23 (Sarna Original) diclofenac sodium 1 % topical gel 2 g topical QID 07/30/22 05/11/23 (Voltaren Arthritis Pain) mupirocin 2 % topical ointment 1 applic topical BID 07/30/22 05/11/23 trazodone 50 mg tablet 50 mg PO .QHS 08/27/22 05/11/23 triazolam 0.25 mg tablet 0.25 mg PO QHS PRN 08/27/22 05/11/23 Allergies Allergy/AdvReac Type Severity Reaction Status Date / Time poison glory extract Allergy . Verified 05/11/23 13:02 poison oak extract Allergy rash Verified 05/11/23 13:02 atorvastatin [From Lipitor] AdvReac Intermediate rash Verified 05/11/23 13:02 General MOE: 2 Review of Systems Constitutional Constitutional: Reports as per HPI, Denies chills, Denies fever(s), Denies headache(s), Denies lethargy and Denies poor appetite ENT Ears, Nose, Mouth, and Throat: Denies headache(s) Cardiovascular Cardiovascular: Reports as per HPI, Denies dyspnea and Denies dyspnea on exertion Respiratory Respiratory: Reports as per HPI, Denies chest congestion, Denies cough, Denies pain on inspiration, Denies pain with cough, Denies dyspnea and Denies dyspnea on exertion Gastrointestinal Gastrointestinal: Reports as per HPI, Denies abdominal pain, Denies diarrhea, Denies nausea and Denies vomiting Musculoskeletal Musculoskeletal: Reports as per HPI and Denies back pain Integumentary/Breasts Skin/Breast: Reports as per HPI and Denies rash Neurologic Neurologic: Reports as per HPI and Denies headache(s) Exam Const General: cooperative, healthy appearing, comfortable, no acute distress and well developed Nutritional Appearance: average body habitus and well nourished Orientation: alert, awake and oriented x3 HENMT Head: normal to inspection Ears: hearing grossly normal bilaterally Mouth: moist mucous membranes Chest Chest: normal inspection of the chest and normal palpation of entire chest wall Resp Effort & Inspection: normal respiratory effort, able to speak in complete sentences and no respiratory distress Auscultation: clear to auscultation bilaterally, no rales, no rhonchi and no wheezes Cardio Rate: regular rate Rhythm: regular rhythm Heart Sounds: murmur GI Inspection: normal to inspection, no edema and non-distended Palpation: soft, not firm, no guarding, not rigid and nontender Skin General skin exam: no rashes or lesions noted Trauma: no lacerations or abrasions Neuro General: patient alert, patient awake and patient oriented x3 Cognition: normal cognition Speech: speech normal Gait: normal gait Extrem General: normal to inspection, capillary refill normal, no pedal edema, no calf tenderness and normal gait Medical Decision Making Patient is a pleasant 83-year-old female with past medical history significant for squamous cell carcinoma, anemia, gastritis, serrated adenoma colon, peripheral vascular disease, presenting today with her significant other, with chief complaint of chest pain. She reports it has been intermittent for the past month. Does not necessarily exertionally based. Not worse with deep breaths. She denies any shortness of breath. Denies any GI upset. No nausea or vomiting. States that she can occasionally feel dizzy but does not necessarily like this with her chest pain. Rather, she states if she stands too quickly she can experience some symptoms of feeling lightheaded. Denies any preceding illness but states that currently she is experiencing some URI symptoms which are more mild. Has been here in the past for chest pain. No personal history of coronary artery disease, STEMI or coronary stent placement. Denies any change with p.o. intake. On exam, patient appears nontoxic. She is hypertensive but otherwise hemodynamically stable. Lungs are clear. She does have a notable murmur but patient reports that this is chronic and that she has been followed by her primary care for this. She did have an echocardiogram for further evaluation recently which she reports was normal. Abdomen is benign. Patient's not actively having any chest pain. No lower extremity edema or calf pain. Consider potential ACS although the nonexertional nature of this is certainly atypical. However, patient does have peripheral vascular disease as noted in her lower extremities, she certainly has risk factors. Symptoms been ongoing for the past month and are intermittent with no identifiable cause. No rashes. No evidence to suggest GERD or acid reflux does not seem to be associated with certain positions or p.o. intake. Also not associate with certain movements and making MSK less likely. While she does have a cough, the intermittent chest discomfort has been present significantly longer than the cough. She has not had any shortness of breath, is not tachycardic or hypoxic. She has not had any recent travel, estrogen supplementation or other risk factors to suggest DVT. I do not believe evaluation for pulmonary embolism is warranted at this time. She is not having any increased pain with inspiration. Symptoms have not been progressively worsening. She denies any pain radiating to the back. Again, pain is not consistent or progressive. She does not have any pulsatile mass in the abdomen, no evidence to suggest dissection or aneurysm at this time. Aspirin given Chest x-ray reviewed by radiologist: Heart size is normal. The mediastinum is not widened. Right lung is clear. Small area of increased markings in the mid-lower left lung field lateral to the heart border. This measures approximately 1.5 x 1.0 cm. Difficult to differentiate between subtle infiltrate or normal lung markings at this level. However, this finding appears to been present dating back to 2010. Therefore doubtful significance. There are no pleural effusions. IMPRESSION: Mild left lung density as described above with very little change compared to 2011 and therefore most probably benign. Labs reviewed, no acute abnormality. ECG was initially reviewed by Dr. Thrasher with no evidence to suggest STEMI. 70 wandering baseline, this was repeated and reviewed by Dr. Garcia, no acute abnormality or findings to suggest ischemic pathology. Patient is requesting discharge. With her normal troponin, atypical presentation and reassuring workup here, I feel that this is appropriate. However, given the chronicity, some of the testing that were doing here may be slightly invalid. Her is a nurse, seems very attentive and is able to bring her back with any new or worsening symptoms. He will follow-up outpatient I encouraged outpatient stress testing. Encouraged that she call primary care to schedule appointment and ask for referral in order. Strict return precautions were discussed. She is already taking aspirin daily.All of her questions and concerns were addressed and she is in agreement this plan. Quality:SDOH Health Related Social Needs: No Data to Display PFSH All Active Problems (Updated 05/11/23 @ 15:15 by STEFANIE Medrano) Chest pain (Acute) Cough (Acute) Sleep disorder (Acute) Hypocalcemia (Acute) Esophagitis, reflux (Acute) Asthma (Chronic) Anxiety disorder (Acute) IBS (irritable bowel syndrome) (Chronic) Inflammatory neuropathy (Acute) Heart murmur, systolic (Acute) Pain in right foot (Acute) Porokeratosis (Acute) Hyperlipidemia (Acute) Hypothyroidism (Chronic) PAD (peripheral artery disease) (Acute) Pt. states she has bilateral stents in her thighs [facility] [place] [facility] Medical History (Updated 05/11/23 @ 15:15 by STEFANIE Medrano) Squamous cell carcinoma of skin Chronic low back pain History of anemia iron deficiency Erosive gastritis Serrated adenoma of colon Colon polyp, hyperplastic (~08/2022) Hemorrhoids Hx of adenomatous polyp of colon Cataracts, bilateral Hx of cyst of breast Left, removal Tachycardia Pt. states she had a cardiology work-up r/t 2 weeks ago, they beleive this is anemia related, pt has been taking iron supplements and pt. stated her HR is lowered since then Shortness of breath Pt. states that this is from her anemia, and since has got better Surgical History Hx of cataract surgery History of surgery on wrist bilateral dupuytrens Hx of shoulder surgery Right History of tonsillectomy Hx of colonoscopy (~08/2022) History of intestinal surgery Per pt. The tissue that holds my bowels in place got a hole in it H/O bilateral hip replacements Social History Smoking/Tobacco Use Status: Never Smoking risk assessment performed?: Yes Alcohol Intake: current Alcohol Intake frequency: 0-2 drinks per day Alcohol type: wine and hard liquor Drug use: Never Substance use type: does not use Housing: house Current gender identity: female Do you feel safe at home: Yes Do you feel safe in your relationship?: Yes
[2023-05-11] MEDS: Aspirin 81 MG CHEW 324 MG CH (13:17)
[2023-05-11 13:18] LABS: Abs Immature Grans 0.03 10^3/uL (0.0-0.06); Absolute Basophil Count 0.03 10^3/uL (0.0-0.2); Absolute Eosinophil Count 0.16 10^3/uL (0.0-0.7); Absolute Lymphocyte Count 0.89 10^3/uL (1.2-3.4); Absolute Monocyte Count 0.82 10^3/uL (0.1-0.8); Absolute Neutrophil Count 5.06 10^3/uL (1.2-6.7); Basophils % 0.4; Eosinophils % 2.3; HCT 43.3 % (36.0-46.0); HGB 14.4 g/dL (11.2-15.7); Immature Grans % 0.4; Lymphocytes % 12.7; MCH 31.9 pg (27.0-33.0); MCHC 33.3 % (32.0-36.0); MCV 96 fL (80-95); MPV 11.1 fL (8.0-11.0); Monocytes % 11.7; Neutrophils % 72.5; Platelet Count 120 10^3/uL (130-400); RBC 4.52 10^6/uL (3.93-5.22); RDW 12.8 % (11.7-14.6); RDW-SD 45.7 fL; WBC 6.99 10^3/uL (4.4-10.8)
[2023-05-11 13:30] LABS: PTT Activated 27.9 sec (23.6-32.8); Prothrombin Time 10.3 sec (9.1-11.1)
[2023-05-11 13:47] LABS: ALT 25 U/L (14-59); AST 25 U/L (15-37); Albumin 3.4 g/dL (3.4-5.0); Alkaline Phosphatase 83 U/L (46-116); Anion Gap 9.7 mmol/L (3-11); BUN 21 mg/dL (7-18); Bilirubin, Total 0.4 mg/dL (0.2-1.0); CO2 27.3 mmol/L (21.0-32.0); CREATININE 0.8 mg/dL (0.55-1.02); Calcium 8.5 mg/dL (8.5-10.1); Chloride 104 mmol/L (98-107); Estimated GFR 72.61 (mL/min/1.73m2); Glucose 84 mg/dL (74-106); Magnesium 2.2 mg/dL (1.8-2.4); Potassium 4.2 mmol/L (3.5-5.1); Sodium 141 mmol/L (136-145); Troponin I < 50 ng/L (< or =60)
--- NOTE | 2023-05-11 13:51 | DI.RAD_ITS ---
Exam(s) XR CHEST 2V PA LATERAL EXAM: XR CHEST 2V PA LATERAL CLINICAL HISTORY: CP. TECHNIQUE: 2D digital imaging was performed. COMPARISON: CR CHEST 2 VIEWS PA,LAT from 06/21/2010 CR XR CHEST 2V PA LATERAL from 07/04/2019 CR,XR XR CHEST 2V PA LATERAL from 09/12/2019 CR XR CHEST 2V PA LATERAL from 07/24/2022 FINDINGS: 2 views: Heart size is normal. The mediastinum is not widened. Right lung is clear. Small area of increased markings in the mid-lower left lung field lateral to th e heart border. This measures approximately 1.5 x 1.0 cm. Difficult to differentiate between subtle infiltrate or normal lung markings at this level. However, this finding appears to been present cynthia ing back to 2010. Therefore doubtful significance. There are no pleural effusions. IMPRESSION: Mild left lung density as described above with very little change compared to 2011 and therefore most probably benign. DATA REPOSITORY: RADIATION DOSE DELIVERED:
[2023-05-11 14:27] LABS: COVID-19 PCR Negative (Negative); Influenza A PCR Negative (Negative); Influenza B PCR Negative (Negative); RSV PCR Negative (Negative); Source Nasopharynx
--- NOTE | 2023-05-11 14:30 | RT.EKG_ITS ---
APPROVED REPORT Exam: Resting ECG Reason for Exam: repeat Patient Location: E HR:74 bpm ECG Measurements Heart Rate 74 AXIS IL 167 P 117 QRSd 82 QRS -56 QT 410 T 35 QTc 456 Conclusion Sinus rhythm...normal P axis, V-rate 60- 99 Left anterior fascicular block...axis(240,-40), init forces inf
== END 2023-05-11 15:30 | disposition home or self-care (01) ==
PROVIDERS: Emergency Provider Physician Assistant; PCP Family Medicine
DX: R07.9 Chest pain, unspecified (principal); R05.9 Cough, unspecified; R01.1 Cardiac murmur, unspecified; I44.4 Left anterior fascicular block; E78.5 Hyperlipidemia, unspecified; I73.9 Peripheral vascular disease, unspecified; Z11.52 Encounter for screening for COVID-19; Z79.82 Long term (current) use of aspirin
CPT/HCPCS: 36415; 80053; 87637; 93005; 99285; 71046; 83735; 84484; 85025; 85610; 85730; 93010; 99284

== ENCOUNTER → 2023-05-27 01:42 | Outpatient (CLI) | payer MEDICARE, SELFPAY ==
--- NOTE | 2023-05-27 | ETT_ITS ---
APPROVED REPORT Exam: Exercise Treadmill Patient Location: Out-Patient Room/Bed: Stress Nurse: Bertha Benjamin RN Ordering Provider:FAISAL HINOJOSA, Contact Number: [phone] BMI: 22.82 Baseline Rhythm: Sinus Rhythm Indications: Chest pain, Medical History Medical History: Hypocalcemia, reflux/esophagitis, HLD, PAD, asthma, inflammatory neuropathy, heart m urmur, tachycardia, hypothyroidism, anemia Cardiac Medications: Aspirin, advair, levothyroxine, omeprazole, rosuvastatin, trazadone Allergies: Atorvastatin Cardiac Risk Factors: HLD, asthma, PVD Previous Cardiac Procedures: 2 stents in legs Pretest Chest Pain Characteristics: None Exercise History: Physically active Physical Disabilities: None Lung Sounds: Clear to auscultation Heart Sounds: Regular, Murmur Stress Test Details Test: Exercise stress testing was performed using a Nick protocol. Rest Stress HR Resting HR Supine: 75 bpm Max Heart Rate (APMHR): 136 bpm Resting HR Standin bpm Target HR (85% APMHR): 116 bpm Max HR Achieved: 132 bpm % of APMHR: 97 Recovery HR: 76 bpm HR response to stress: Normal HR response to stress BP Resting BP Supine: 140/70 mmHg Resting BP Standin/86 mmHg Max BP: 190/80 mmHg Recovery BP: 140/72 mmHg BP response to stress: Normal blood pressure response to stress. ECG Resting ECG: Sinus Rhythm Ectopy: None Stress ECG: Sinus Tachycardia ST Change: No significant ST segment changes noted Arrhythmia: None Recovery ECG: Sinus Rhythm Recovery ST Change: No significant ST segment changes noted Recovery Arrhythmia: None Clinical Reason for Termination: Target HR Achieved Stress Symptoms: Mild SOB Exercise duration: 05 min59 sec Highest Stage Reached: Stage 2: 2.5 mph at 12% grade. Exercise capacity: 7.05 METs Angina Score: None Patiño Treadmill Score: 5.2 Rate Pressure Product: 19808 Stress ECG Conclusion 1. Resting EKG showed left axis deviation 2. Patient exercised on the Nick protocol and completed a workload of 7 METS 3. Normal heart rate and blood pressure response to exercise 4. Peak heart rate was 97% of predicted for age 5. There was no electrocardiographic evidence of myocardial ischemia 6. There were no dysrhythmias Patiño Treadmill Score is 5.2 which is Low risk. Stress Test Summary STAGE Time (mins) Speed (mph) Grade (%) HR BP SpO2 SYMPTOMS METS Supine 75 140/70 Standing 78 150/86 1 3 1.7 10 108 158/78 4.5 2 6 2.5 12 130 180/78 7 1 min recovery 108 190/80 94 3 min recovery 78 160/70 6 min recovery 76 140/72 97
== END ==
PROVIDERS: PCP Family Medicine; Visit Provider Student in an Organized Health Care Education/Training Program
DX: R07.89 Other chest pain (principal)
CPT/HCPCS: 93016; 93018; 93017

== ENCOUNTER 2023-06-29 05:46 | Outpatient (CLI) | payer MEDICARE, SELFPAY ==
[2023-06-29 13:16] LABS: TSH (W/Ref FT4) 0.09 uIU/mL (0.36-3.74)
[2023-06-29 13:33] LABS: FREE T4 1.14 ng/dL (0.76-1.46)
[2023-06-29 14:10] LABS: Vitamin B12 764 pg/mL (193-986)
== END 2023-06-29 05:47 | disposition home or self-care (01) ==
LOC: LBO 05:46
PROVIDERS: PCP Family Medicine; Visit Provider Family Medicine
DX: E03.9 Hypothyroidism, unspecified (principal)
CPT/HCPCS: 36415; 82607; 84439; 84443

== ENCOUNTER → 2023-08-02 15:06 | Outpatient (BNVA) | payer MEDICARE, SELFPAY | PROVIDERS: PCP Family Medicine; Referring Provider Family Medicine; Visit Provider Podiatrist | DX: L60.0 Ingrowing nail (principal); Q82.8 Other specified congenital malformations of skin; I73.9 Peripheral vascular disease, unspecified; M79.671 Pain in right foot | CPT/HCPCS: 11750 ==

== ENCOUNTER → 2023-08-17 10:38 | Outpatient (BNVA) | payer MEDICARE, SELFPAY | PROVIDERS: PCP Family Medicine; Referring Provider Family Medicine; Visit Provider Podiatrist | DX: L60.0 Ingrowing nail (principal); Q82.8 Other specified congenital malformations of skin; I73.9 Peripheral vascular disease, unspecified; M79.671 Pain in right foot | CPT/HCPCS: 99213 ==

== ENCOUNTER 2023-09-03 01:51 | Outpatient (CLI) | payer MEDICARE, SELFPAY ==
[2023-09-03 12:35] LABS: TSH (W/Ref FT4) 3.69 uIU/mL (0.36-3.74)
== END 2023-09-03 01:52 | disposition home or self-care (01) ==
LOC: LBO 01:52
PROVIDERS: PCP Family Medicine; Visit Provider Family Medicine
DX: E03.9 Hypothyroidism, unspecified (principal)
CPT/HCPCS: 36415; 84443

== ENCOUNTER 2024-01-03 19:37 | Outpatient (REF) | payer MEDICARE, SELFPAY ==
[2024-01-03 19:51] LABS: TSH (W/Ref FT4) 2.67 uIU/mL (0.36-3.74)
== END 2024-01-03 19:38 | disposition home or self-care (01) ==
LOC: NCHCN 19:37
PROVIDERS: PCP Family Medicine; Visit Provider Family Medicine
DX: E03.9 Hypothyroidism, unspecified (principal)
CPT/HCPCS: 84443

== ENCOUNTER 2024-01-13 02:11 | Outpatient (CLI) | payer MEDICARE, SELFPAY ==
--- NOTE | 2024-01-13 11:55 | DI.MAMMO_ITS ---
Exam(s) MAMMO SCREENING EXAM: MAMMO SCREENING CLINICAL HISTORY: SCREENING MAMMO Z12.31. TECHNIQUE: Bilateral full field digital CC and MLO mammographic images were obtained with 3D tomosyn thesis and utilizing computer aided detection (CAD). COMPARISON: Prior mammograms were reviewed. FINDINGS: The fibroglandular tissue pattern is again noted be moderately dense, this somewhat decreasing the se nsitivity of the mammogram for finding in underlying lesions. There are no new spiculated masses nor malignant appearing microcalcification groups. There is no significant architectural distortion nor skin thickening-retraction. IMPRESSION: No radiographic evidence of malignancy. BI-RADS Category 1 - Negative Breast Density - Category C - Heterogeneously dense Breast density Category C or D implies that the patient has dense breast tissue. Dense breast tissue can make it harder to find cancer on a mammogram. Dense breast tissue is also associated with an incr eased risk of breast cancer. This information about the result of the mammogram report was provided to the patient to raise their awareness. Use this report when you speak with the patient about their risks for breast cancer, which includes their family history. At that time, you may recommend additional screening tests (Ultrasoun d or MRI) as these tests may add significant information. A negative radiographic report should not delay biopsy if a dominant or clinically suspicious mass is present. Up to ten percent of cancers are not identified on mammography. A negative report may reinforce clinical impression. Adenosis and dense breasts may obscure an underlying neoplasm. False positive reports average 6 to 10%. Patient will receive a letter notifying them of these results.
== END 2024-01-13 02:31 ==
LOC: DI 02:11
PROVIDERS: PCP Family Medicine; Visit Provider Family Medicine
DX: Z12.31 Encounter for screening mammogram for malignant neoplasm of breast (principal); R92.323 Mammographic fibroglandular density, bilateral breasts; R92.333 Mammographic heterogeneous density, bilateral breasts
CPT/HCPCS: 77063; 77067

== ENCOUNTER → 2024-01-25 14:09 | Outpatient (BNVA) | payer MEDICARE, SELFPAY | PROVIDERS: PCP Family Medicine; Referring Provider Family Medicine; Visit Provider Podiatrist | DX: L60.3 Nail dystrophy (principal); Q82.8 Other specified congenital malformations of skin; I73.89 Other specified peripheral vascular diseases; M79.671 Pain in right foot | CPT/HCPCS: 17110 ==

== ENCOUNTER 2024-05-15 14:03 | Outpatient (CLI) | payer MEDICARE, SELFPAY ==
[2024-05-15 12:20] LABS: HCT 41.8 % (36.0-46.0); HGB 13.7 g/dL (11.2-15.7); MCH 31.9 pg (27.0-33.0); MCHC 32.8 % (32.0-36.0); MCV 97 fL (80-95); MPV 11.1 fL (8.0-11.0); RDW 12.9 % (11.7-14.6); WBC 8.32 10^3/uL (4.4-10.8)
[2024-05-15 12:35] LABS: Platelet Count 99 10^3/uL (130-400)
[2024-05-15 13:31] LABS: ALT 27 U/L (14-59); AST 27 U/L (15-37); Albumin 3.8 g/dL (3.4-5.0); Alkaline Phosphatase 81 U/L (46-116); Anion Gap 7.7 mmol/L (3-11); BUN 20 mg/dL (7-18); Bilirubin, Total 0.4 mg/dL (0.2-1.0); CO2 29.3 mmol/L (21.0-32.0); CREATININE 0.8 mg/dL (0.55-1.02); Calcium 9.1 mg/dL (8.5-10.1); Chloride 106 mmol/L (98-107); Estimated GFR 72.16 (mL/min/1.73m2); Glucose 99 mg/dL (74-106); Potassium 4.3 mmol/L (3.5-5.1); Sodium 143 mmol/L (136-145); TSH (W/Ref FT4) 3.13 uIU/mL (0.36-3.74); Total Protein 6.6 g/dL (6.4-8.2)
== END 2024-05-15 14:04 | disposition home or self-care (01) ==
PROVIDERS: PCP Family Medicine; Visit Provider Family Medicine
DX: R53.83 Other fatigue (principal)
CPT/HCPCS: 36415; 80053; 85027; 84443

== ENCOUNTER 2024-09-27 15:52 | Outpatient (CLI) | payer MEDICARE, SELFPAY ==
--- NOTE | 2024-09-27 13:45 | DI.RAD_ITS ---
Exam(s) XR SHOULDER LT COMPLETE 2+V EXAM: XR SHOULDER LT COMPLETE 2+V CLINICAL HISTORY: LEFT SHOULDER NUMBNESS/WEAKNESS. TECHNIQUE: 2D digital imaging was performed. COMPARISON: No exams were available for comparison FINDINGS: Two views No evidence of fracture or dislocation nor abnormal soft tissue calcifications. Subacromial space is not diminished. There is significant osteoarthritic degenerative change in the glenohumeral joint. There is moderate joint space narrowing and there is a bermudez-type osteophyte on the inferior articular surface of the humeral head. There are small degenerative subarticular cysts in the adjacent osseous glenoid. Also degenerative changes evident in the ipsilateral AC joint. Bone density normal. No osseous lesions. 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 Also significant degenerative changes in the AC joint. Subacromial space is not diminished. DATA REPOSITORY: RADIATION DOSE DELIVERED:
== END 2024-09-27 15:53 | disposition home or self-care (01) ==
LOC: DIORS 15:52
PROVIDERS: PCP Family Medicine; Referring Provider Family Medicine; Visit Provider Student in an Organized Health Care Education/Training Program
DX: M19.012 Primary osteoarthritis, left shoulder (principal); R29.898 Other symptoms and signs involving the musculoskeletal system; Z98.890 Other specified postprocedural states
CPT/HCPCS: 99214; 73030

== ENCOUNTER 2024-10-18 15:01 | Outpatient (CLI) | payer MEDICARE, SELFPAY ==
--- NOTE | 2024-10-18 10:15 | DI.RAD_ITS ---
Exam(s) RF JOINT INJ. FLUORO GUID RAD EXAM: RF JOINT INJ. FLUORO GUID RAD CLINICAL HISTORY: L SHOULDER PAIN,fluoro guided injection,arthritis lt glenohumeral joint. The Patient has had persistent left shoulder pain. Noninvasive measures have been tried. To serve as both diagnostic and therapeutic, an injection under fluoroscopy was recommended. The risks of the procedure were discussed with their Orthopedic provider and the patient elected to proceed. TECHNIQUE: 2D and realtime digital imaging was performed. CONTRAST MATERIAL: Water soluble contrast was utilized. COMPARISON: No exams were available for comparison FINDINGS: The Patient was greeted in the fluoroscopy room. The correct side was identified and the consent was reviewed with the patient and was signed. The patient was properly positioned on the fluoroscopy table. The left shoulderwas then prepped and draped. The left shoulder injection starting point was i dentified by the bony landmarks and fluoroscopy. The skin and soft tissue in the tract of the injection was anesthetized with 0.25% Bupivacaine. A spinal needle was then inserted into the left shoulder joint at the level of the glenohumeral joint under fluoroscopic guidance. A small amount of Omnipaque solution was injected to confirm intraarticular placement. Once confirmed, the left shoulder was injected with 5cc of a solution containing 0.25% Bupivacaine and 40 mg of Depo-Medrol. A bandaid was placed on the injection site. The patient tolerated the procedure well and left the department in good condition. IMPRESSION: Successful left shoulder injection. RADIATION DOSE DELIVERED: Ka,r=1.1 mGy
[2024-10-18] MEDS: Normal Saline - Diluent 50 ML VIAL IJ (12:06)
[2024-10-18] MEDS: Bupivacaine 0.25% Pres-Free 10 ML VIAL IJ (12:07)
[2024-10-18] MEDS: Omnipaque 300 MG/ML 10 ML BTL IJ (12:07)
[2024-10-18] MEDS: methylPREDNISolone ACETATE 40 MG/ML VIAL IM (12:08)
== END 2024-10-18 15:21 ==
LOC: DI 15:01
PROVIDERS: PCP Family Medicine; Visit Provider Student in an Organized Health Care Education/Training Program
DX: M19.012 Primary osteoarthritis, left shoulder (principal)
CPT/HCPCS: 20610; 77002; J0665; J1010

== ENCOUNTER 2024-12-26 01:22 | Outpatient (CLI) | payer MEDICARE, SELFPAY ==
[2024-12-26 11:18] LABS: HCT 39.9 % (36.0-46.0); HGB 13.1 g/dL (11.2-15.7); MCH 31.8 pg (27.0-33.0); MCHC 32.8 % (32.0-36.0); MCV 97 fL (80-95); MPV 10.8 fL (8.0-11.0); Platelet Count 147 10^3/uL (130-400); RBC 4.12 10^6/uL (3.93-5.22); RDW 13.3 % (11.7-14.6); RDW-SD 47.7 fL; WBC 8.52 10^3/uL (4.4-10.8)
[2024-12-26 12:09] LABS: ALT 30 U/L (14-59); AST 27 U/L (15-37); Albumin 3.7 g/dL (3.4-5.0); Alkaline Phosphatase 71 U/L (46-116); Anion Gap 5.8 mmol/L (3-11); BUN 18 mg/dL (7-18); Bilirubin, Total 0.5 mg/dL (0.2-1.0); CO2 30.2 mmol/L (21.0-32.0); Calcium 9.0 mg/dL (8.5-10.1); Chloride 102 mmol/L (98-107); Glucose 135 mg/dL (74-106); Potassium 4.1 mmol/L (3.5-5.1); Sodium 138 mmol/L (136-145); TSH (W/Ref FT4) 3.69 uIU/mL (0.36-3.74); Total Protein 7.1 g/dL (6.4-8.2)
== END 2024-12-26 01:23 | disposition home or self-care (01) ==
LOC: LBO 01:22
PROVIDERS: PCP Family Medicine; Visit Provider Family Medicine
DX: R53.83 Other fatigue (principal)
CPT/HCPCS: 36415; 80053; 85027; 84443

== ENCOUNTER 2025-01-10 15:46 | Outpatient (REF) | payer MEDICARE, SELFPAY ==
[2025-01-10 21:27] LABS: ESR 15 mm/hr (0-30)
[2025-01-10 21:28] LABS: HCT 40.0 % (36.0-46.0); HGB 13.1 g/dL (11.2-15.7); MCH 31.4 pg (27.0-33.0); MCHC 32.8 % (32.0-36.0); MCV 96 fL (80-95); MPV 12.0 fL (8.0-11.0); Platelet Count 154 10^3/uL (130-400); RBC 4.17 10^6/uL (3.93-5.22); RDW 13.2 % (11.7-14.6); RDW-SD 47.1 fL; WBC 8.29 10^3/uL (4.4-10.8)
[2025-01-10 21:40] LABS: C-Reactive Protein < 0.50 mg/dL (<=0.50)
[2025-01-10 21:42] LABS: TSH (W/Ref FT4) 4.35 uIU/mL (0.55-4.78)
== END 2025-01-10 15:47 | disposition home or self-care (01) ==
LOC: NCHCN 15:46
PROVIDERS: PCP Family Medicine; Visit Provider Family Medicine
DX: E03.9 Hypothyroidism, unspecified (principal); M25.551 Pain in right hip; M25.552 Pain in left hip
CPT/HCPCS: 85027; 85652; 84443; 86140

== ENCOUNTER → 2025-01-12 02:41 | Outpatient (CLI) | payer MEDICARE, SELFPAY ==
--- NOTE | 2025-01-12 | DI.RAD_ITS ---
Exam(s) XR LUMBAR SPINE COMPLETE EXAM: XR LUMBAR SPINE COMPLETE CLINICAL HISTORY: CHRONIC BILAT LOW BACK PAIN WO SCIATICA,M54.50. TECHNIQUE: 2D digital imaging was performed. Five views. COMPARISON: CR XR DEXA BONE DENSITY W/WO SUZANNE from 07/28/2022 FINDINGS: The spine is partially obscured by overlying stool and bowel gas. BONES: No fracture or destructive lesion. Vertebral body heights are maintained. No facet degenerative changes are present greatest at L4-5 and L5- S1. DISKS: Mild narrowing of the L3-4 and L4-5 disc spaces. The remaining intervertebral disc spaces are maintained. ALIGNMENT: Mild degenerative scoliosis. SOFT TISSUE: Normal the aorta is heavily calcified. IMPRESSION: Degenerative disc changes greatest at L 3 4 and L4-5. DATA REPOSITORY: RADIATION DOSE DELIVERED:
== END ==
PROVIDERS: PCP Family Medicine; Visit Provider Family Medicine
DX: M45.0 Ankylosing spondylitis of multiple sites in spine (principal); M51.360 Other intervertebral disc degeneration, lumbar region with discogenic back pain only
CPT/HCPCS: 72110